=== PATIENT | female | born 2000 | race Caucasian/White ===

== ENCOUNTER 2023-09-08 11:37 | Emergency (ER) | payer OTHER, SELFPAY ==
--- NOTE | 2023-09-08 12:58 | ED.GENADULT ---
HPI - General Adult General Chief complaint: Abdominal Pain Stated complaint: kidney pain Time Seen by Provider: 09/08/23 15:30 Source: patient Mode of arrival: ambulatory Limitations: no limitations History of Present Illness HPI narrative: Patient comes to the emergency room complaining of 4 days of bilateral back pain, hematuria, dysuria. Patient denies fever or chills. Patient denies abdominal pain, patient complaining of nausea, no vomiting. Related Data Previous Rx's Medication Instructions Recorded levofloxacin 500 mg tablet 500 mg PO DAILY #10 tabs 09/08/23 ondansetron HCl 4 mg tablet 4 mg PO Q6H PRN nausea and 09/08/23 vomiting #14 tabs phenazopyridine 100 mg tablet 100 mg PO TID 6 doses #7 tabs 09/08/23 Allergies Allergy/AdvReac Type Severity Reaction Status Date / Time No Known Allergies Allergy Verified 09/08/23 13:00 [No Known Allergies*] Review of Systems Review of Systems: Constitutional : No Weight loss, No Fever, No Chills, No Night Sweats, No Fatigue, No Malaise ENT/Mouth : No Hearing loss, No Ear Pain, No Nasal Congestion, No Sinus Pain, No Hoarseness, No sore throat, No Rhinorrhea, No Swallowing Difficulty Eyes: No Eye Pain, No Swelling, No Redness, No Foreign Body, No Discharge, No Vision Changes Cardiovascular : No Chest Pain, No SOB, No Dyspnea on Exertion, No Orthopnea, No Edema, No Palpitations Respiratory : No Cough, No Sputum, No Wheezing, No Smoke Exposure, No Dyspnea Gastrointestinal : No Nausea, No Vomiting, No Diarrhea, No Constipation, No abdominal Pain, No Hematochezia, No Melena Genitourinary : Complaining of Dysuria, No Urinary Frequency, complaining of Hematuria, No Urinary Incontinence, No Urgency, complaining of bilateral Flank Pain, No Urinary Flow Changes, No Hesitancy Musculoskeletal : No joint pain, No Myalgias, No Joint Swelling Skin : No Skin Lesions, No rash Neuro : No Weakness, No Numbness, No Paresthesias, No Loss of Consciousness, No Dizziness, No Headache Psych : No Anxiety/Panic, No Depression, No SI/HI/AH/VH, No Social Issues, Heme/Lymph: No Bruising, No Bleeding,No Lymphadenopathy Endocrine : No Polyuria, No Polydipsia, No Temperature Intolerance [facility] Social History Social History Alcohol intake: never Smoked in Last 30 Days: No Use of substances other than those prescribed or required for medical reasons: No Advance Directives: No Physical Exam ED Vital Signs: Vital Signs - 24 hr 09/08/23 12:59 09/08/23 15:13 Temperature 98.8 F 978.5 F H Pulse Rate 69 60 Respiratory Rate 16 18 Blood Pressure 139/84 152/84 H Pulse Oximetry 97 99 Oxygen Delivery Method Room Air Room Air BMI result Body Mass Index 32.8 Const Other: Appearance: Alert. Oriented X3. No acute distress. Eyes: Pupils equal, round and reactive to light. ENT: Pharynx normal. Neck: Normal inspection. Neck supple. No lymph nodes noted. No crepitus CVS: Normal heart rate and rhythm. Pulses normal. Normal S1 and S2 Respiratory: No respiratory distress. Breath sounds normal. No Wheezing. No rales Abdomen: Soft and nontender. No rigidity. No distention. Very mild left-sided flank pain Skin: Skin warm and dry. Normal skin color. Normal skin turgor. Extremities: No lower extremity edema. No Lacerations. No Rash Neuro: Oriented X 3. No motor deficit. No sensory deficit. Moving all extremities. No slurred speech. CN 2 through 12 grossly intact Psych: calm, cooperative, normal affect Course Course Course Narrative: RME performed by Aminata Kim PA-C. Patient is a 23 year old assigned female at presenting to the emergency department with bilateral flank pain and blood in her urine. Labs ordered. Patient placed back in the waiting room pending room availability and results. Medications Administered Discontinued Medications Generic Name Dose Route Start Last Admin Trade Name Young PRN Reason Stop Dose Admin Levofloxacin 500 mg 09/08/23 15:38 09/08/23 16:06 Levofloxacin 500 Mg Tablet PO 09/08/23 15:39 500 mg ONCE ONE Administration Ondansetron HCl 4 mg 09/08/23 15:38 09/08/23 16:06 Ondansetron Odt 4 Mg Tab.Rapdis TRANSLINGU 09/08/23 15:39 4 mg ONCE ONE Administration Phenazopyridine HCl 100 mg 09/08/23 15:38 09/08/23 16:06 Phenazopyridine Hcl 100 Mg Tablet PO 09/08/23 15:39 100 mg ONCE ONE Administration Medical Decision Making Medical Decision Making [facility] Narrative: -my interpretation of labs, white blood cell count slightly elevated 11.8, chemistry normal, normal blood pressure, not tachycardic, no fever. Sepsis not suspected. Urinary tract infection positive, clinically patient has pyelonephritis. Patient tolerating well p.o., given levofloxacin, Zofran and phenazopyridine in the emergency room. -patient has had constant suprapubic discomfort with foul-smelling urine, cloudy urine. Very mild flank pain. Kidney stone is not suspected Differential Diagnosis Differential Diagnoses: The differential diagnosis associated with the presentation includes (UTI, pyelonephritis, renal colic) Lab Data [facility] Lab Attestation statement: I reviewed the patient's lab results. 09/08/23 13:08 09/08/23 13:08 Labs: Lab Results 09/08/23 Range/Units 13:08 WBC 11.8 H (4.8-10.8) X10*3/uL RBC 5.22 (4.20-5.50) X10*6/uL Hgb 14.9 (12.0-16.0) g/dl Hct 45.2 (37.0-47.0) % MCV 86.6 (80.0-98.0) fL MCH 28.5 (27.0-33.0) pg MCHC 33.0 (31.0-35.0) g/dl RDW 12.1 (11.0-16.0) % Plt Count 343 (160-400) X10*3/uL MPV 9.8 (9.4-12.3) fL Immature Gran % (Auto) 0.6 H (0.0-0.4) % Neut % (Auto) 78.2 H (45-73) % Lymph % (Auto) 13.0 L (20-40) % [place] % (Auto) 7.5 (2-11) % Eos % (Auto) 0.4 (0-4) % Baso % (Auto) 0.3 (0-2) % Lymph # (Auto) 1.5 (1.2-4.9) X10*3/uL [place] # (Auto) 0.9 (0.1-1.2) X10*3/uL Eos # (Auto) 0.1 (0.0-0.4) X10*3/uL Baso # (Auto) 0.0 (0.0-0.2) X10*3/uL Abs Immat Gran (auto) 0.07 H (0.00-0.03) X10*3/uL Absolute Neuts (auto) 9.2 H (2.0-8.3) x10*3/uL Absolute Nucleated RBC 0.000 (0.0-0.012) X10*3/uL Nucleated RBC % (auto) 0.0 (0.0-0.2) /100WBC Sodium 140 (135-145) mmol/L Potassium 4.3 (3.3-5.1) mmol/L Chloride 103 (96-108) mmol/L Carbon Dioxide 25 (22-29) mmol/L Anion Gap 16 (12-20) BUN 7 L (9-16) mg/dL Creatinine 0.69 (0.5-1.4) mg/dL Estim Creat Clear Calc 142.5 Estimated GFR > 60 Random Glucose 101 (60-115) mg/dL Calcium 10.2 (8.4-10.2) mg/dL Magnesium 1.9 (1.6-2.6) mg/dL Total Bilirubin 0.6 (0.0-1.0) mg/dL AST 14 (5-31) U/L ALT 14 (0-31) U/L Alkaline Phosphatase 69 (39-117) U/L Total Protein 7.9 (6.5-8.0) g/dL Albumin 4.4 (3.5-5.0) g/dL Beta HCG, Quant < 2 mIU/mL Urine Color Yellow Urine Appearance Turbid Urine pH 7.0 (5.0-9.0) Ur Specific [place] 1.015 (1.005-1.025) Urine Protein 100 (2+) H (Neg-Trace) mg/dL Urine Glucose (UA) Negative (Negative) mg/dL Urine Ketones 15 (Negative) mg/dL Urine Blood Moderate (2+) H (Negative) Urine Nitrite Negative (Negative) Ur Leukocyte Esterase Large (3+) H (Negative) Urine RBC >20 H (0-2) /HPF Urine WBC >50 H (0-5) /HPF Urine WBC Clumps Present Ur Squamous Epith Cells 0-2 (0-2) /HPF Urine Bacteria 1+ (None Seen) Hyaline Casts 0-2 (0-2) /LPF Discharge Plan Discharge Clinical Impression: Pyelonephritis Patient Disposition: Home, Self-Care Instructions: Kidney Infection (ED) Additional Instructions: Please follow-up with your primary care physician tomorrow. If you have any worsening or new symptoms, please return to the emergency room or call 911 Prescriptions: New levofloxacin 500 mg tablet 500 mg PO DAILY Qty: 10 0RF ondansetron HCl 4 mg tablet 4 mg PO Q6H PRN (Reason: nausea and vomiting) Qty: 14 0RF phenazopyridine 100 mg tablet 100 mg PO TID Qty: 7 0RF
[2023-09-08 12:59] VITALS: BP 139/84; PULSE 69; RESP 16; TEMP 37.1; O2SAT 97; BMI 32.8
[2023-09-08 15:13] VITALS: BP 152/84; PULSE 60; RESP 18; TEMP 525.8; TEMP 978.5; O2SAT 99
[2023-09-08 17:19] VITALS: BP 129/77; PULSE 52; RESP 16; O2SAT 97
== END 2023-09-08 17:19 | disposition home or self-care (01) ==
PROVIDERS: Emergency Provider Emergency Medicine
DX: N12 Tubulo-interstitial nephritis, not specified as acute or chronic (principal); R31.9 Hematuria, unspecified; R30.0 Dysuria; Z79.899 Other long term (current) drug therapy
CPT/HCPCS: 36415; 80053; 81001; 83735; 84702; 85025; 87086; 87088; 87186; 99283; 99284

== ENCOUNTER 2023-11-08 05:52 | Emergency (ER) | payer OTHER, SELFPAY ==
[2023-11-08 06:03] VITALS: BP 116/60; PULSE 64; RESP 16; TEMP 36.9; O2SAT 96; BMI 32.3
[2023-11-08 06:28] LABS: Basophils Percent Auto 0.3 % (0-2); Eosinophils Absolute Auto 0.1 X10*3/uL (0.0-0.4); Eosinophils Percent Auto 1.3 % (0-4); Hematocrit 41.6 % (37.0-47.0); Imm Gran Abs Auto 0.02 X10*3/uL (0.00-0.03); Imm Gran Pct Auto 0.3 % (0.0-0.4); Lymphocytes Percent Auto 38.7 % (20-40); MANUAL DIFF FLAG NO; Mean Corpuscular HGB Conc 33.7 g/dl (31.0-35.0); Mean Corpuscular Hemoglobin 28.9 pg (27.0-33.0); Mean Corpuscular Volume 85.8 fL (80.0-98.0); Mean Platelet Volume 9.6 fL (9.4-12.3); Monocytes Absolute Auto 0.7 X10*3/uL (0.1-1.2); Monocytes Percent Auto 8.5 % (2-11); Neutrophils Percent Auto 50.9 % (45-73); Platelet Count 313 X10*3/uL (160-400); Red Blood Count 4.85 X10*6/uL (4.20-5.50); Red Cell Distribution Width 12.6 % (11.0-16.0); White Blood Count 7.8 X10*3/uL (4.8-10.8)
[2023-11-08 06:40] LABS: Appearance Urine Hazy; Color Urine Yellow; Glucose Urine UA Negative (Negative); Leukocyte Esterase Urine Negative (Negative); Nitrite Urine Positive (Negative); PH 6.5 (5.0-9.0); UMIC TRIGGER UACC YES; UPreg QC Valid YES; Urine Blood Negative (Negative); Urine Ketones Trace mg/dL (Negative); Urine Pregnancy NEGATIVE (NEGATIVE); Urine Protein Negative (Neg-Trace)
[2023-11-08 06:42] LABS: Alanine Aminotransferase 14 U/L (0-31); Albumin Level 3.9 g/dL (3.5-5.0); Alkaline Phosphatase 63 U/L (39-117); Anion Gap 11 (12-20); Aspartate Amino Transferase 15 U/L (5-31); Bilirubin Direct 0.1 mg/dL (0.0-0.5); Bilirubin Total 0.3 mg/dL (0.0-1.0); Blood Urea Nitrogen 13 mg/dL (9-16); Calcium 9.3 mg/dL (8.4-10.2); Carbon Dioxide 30 mmol/L (22-29); Chloride 106 mmol/L (96-108); Creatinine Clr Calc Pharmacy 157.3; Estimated Glomerular Filt Rate > 60; Glucose Random 105 mg/dL (60-115); Lipase 21 U/L (8-78); Sodium 143 mmol/L (135-145); Total Protein 6.7 g/dL (6.5-8.0)
[2023-11-08 06:42] LABS: Bacteria Urine 1+ (None Seen); Hyaline Casts Urine 0-2 /LPF (0-2); RBC Urine 0-2 /HPF (0-2); UACC Culture Trigger YES
[2023-11-08 06:46] LABS: Amphetamine Screen Urine Not Detected (Not Detect); Barbiturates, Urine Not Detected (Not Detect); Benzodiazepines Screen Urine Not Detected (Not Detect); Cannabinoid Screen Urine POSITIVE (Not Detect); Cocaine Screen Urine Not Detected (Not Detect); Fentanyl, urine POSITIVE (Not Detect); Opiate Screen Urine Not Detected (Not Detect); Phencyclidine Screen Urine Not Detected (Not Detect)
[2023-11-08 07:24] LABS: Influenza A PCR NEGATIVE (Negative); Influenza B PCR NEGATIVE (Negative); Resp Syncy Virus RNA Qual PCR NEGATIVE (Negative); SARS COV2 PCR INHOUSE NEGATIVE (Negative)
--- NOTE | 2023-11-08 07:28 | ED.NAVMDI ---
HPI - Nausea/Vomiting/Diarrhea General Chief complaint: Nausea/Vomiting/Diarrhea Stated complaint: Vomiting Time Seen by Provider: 11/08/23 06:30 Source: patient Mode of arrival: ambulatory Limitations: no limitations History of Present Illness HPI Narrative: Patient is a 23-year-old female who presents emergency department for evaluation of mid lower abdominal pain with nausea vomiting poor p.o. tolerance for the past 2 days and urinary frequency. She reports tactile fever and chills. Of note, she states that 1 week ago she began taking a pill that a friend gave her reportedly for anxiety to help her sleep at night, she reports a longstanding history of insomnia. She is unaware of what this pill was, however she took it for 4 days in a row, and states that she began feeling this way after she stopped taking it. Related Data Previous Rx's Medication Instructions Recorded levofloxacin 500 mg tablet 500 mg PO DAILY #10 tabs 09/08/23 ondansetron HCl 4 mg tablet 4 mg PO Q6H PRN nausea and 09/08/23 vomiting #14 tabs phenazopyridine 100 mg tablet 100 mg PO TID 6 doses #7 tabs 09/08/23 cefuroxime axetil 250 mg tablet 250 mg PO BID 6 days #12 tabs 11/08/23 ondansetron 4 mg disintegrating 4 mg PO Q8H PRN nausea and 11/08/23 tablet vomiting #14 tabs Allergies Allergy/AdvReac Type Severity Reaction Status Date / Time No Known Allergies Allergy Verified 11/08/23 06:03 [No Known Allergies*] Review of Systems Review of Systems: Yes all other systems are reviewed and are negative PMFSH Past Medical History Attestation statement: The following information was validated with the patient. Source: old records reviewed Social History Social History Alcohol intake: never Smoked in Last 30 Days: No Use of substances other than those prescribed or required for medical reasons: Yes Substance Use Type: Marijuana Substance Use Frequency: Daily Advance Directives: No Advance Directives Information Provided: Yes Patient : No Physical Exam Vital Signs: Vital Signs: Last Vital Signs Temp 98.4 F 11/08/23 06:03 Pulse 64 11/08/23 06:03 Resp 16 11/08/23 06:03 BP 116/60 11/08/23 06:03 Pulse Ox 96 11/08/23 06:03 O2 Del Method Room Air 11/08/23 06:03 BMI result Body Mass Index 32.3 Appearance: Alert.?Oriented to person, place and time. No acute distress.?Normal affect. Eyes: Pupils equal, round and reactive to light.? ENT: Pharynx normal.?? Neck: Normal inspection.? Neck supple.?? CVS: Heart sounds normal. Normal heart rate and rhythm.? Pulses normal.?? Respiratory: No respiratory distress.? Lung sounds clear to auscultation bilaterally?? Abdomen: Soft and non-tender. Normoactive bowel sounds. No CVA tenderness. No rigidity. No guarding. No rebound tenderness. Negative Tabares sign. No distention. Skin: Skin warm and dry.? Normal skin color.? Extremities: No lower extremity edema.? Neuro: Moves all extremities spontaneously. Sensation intact bilaterally. Ambulates with normal steady gait. Medications Administered Discontinued Medications Generic Name Dose Route Start Last Admin Trade Name Freq PRN Reason Stop Dose Admin Sodium Chloride 1,000 mls @ 999 mls/hr 11/08/23 07:30 11/08/23 07:53 Ns IV 11/08/23 08:30 999 mls/hr .Q1H1M JAYASHREE Administration Ceftriaxone Sodium 1 gm/ 50 mls @ 100 mls/hr 11/08/23 07:24 11/08/23 08:55 Sodium Chloride IV 11/08/23 07:53 Infused ONCE ONE Infusion Ondansetron HCl 4 mg 11/08/23 07:24 11/08/23 07:52 Ondansetron Hcl 4 Mg/2 Ml Vial IVPUSH 11/08/23 07:25 4 mg ONCE ONE Administration Medical Decision Making Medical Decision Making [facility] Narrative: Patient is a 23-year-old female who presents emergency department for evaluation of abdominal pain with nausea vomiting and urinary frequency as per HPI. Her abdominal examination is benign, she has no CVA tenderness, at this time less likely to be pyelonephritis/hydronephrosis/ureteral calculi. Lower suspicion for colitis, obstruction, appendicitis, ovarian torsion, ovarian cyst. CBC is without leukocytosis or anemia. CMP is overall unremarkable. Lipase normal. test negative. Urinalysis consistent with UTI, for which she received Rocephin IV while in the emergency department. Her toxicology testing today is positive for fentanyl are and marijuana hand she denies concerns for her marijuana potentially be placed, we reviewed the concern of taking unknown substances not prescribed to her . She adamantly denies known opiate usage, she denies requiring detox. I did advise her that symptoms of nausea vomiting and chills could also be seen with withdrawal from opiates. She was offered Narcan to take home but again she declines this. She received 1 L IV fluids in addition to Zofran was able to tolerate oral intake. At this time she is stable for discharge home with course of oral antibiotics, reviewed worrisome signs and symptoms that would warrant re-evaluation in the emergency department, all questions answered. Stable for discharge. Differential Diagnosis Differential Diagnoses: The differential diagnosis associated with the presentation includes (As noted above) Admission/Observation Consideration of admission/observation: Escalation of care including admission/observation considered (See narrative above) Lab Data [facility] Lab Attestation statement: I reviewed the patient's lab results. (See narrative above) 11/08/23 06:24 11/08/23 06:24 Labs: Lab Results 11/08/23 11/08/23 11/08/23 Range/Units 06:24 06:31 06:43 WBC 7.8 (4.8-10.8) X10*3/uL RBC 4.85 (4.20-5.50) X10*6/uL Hgb 14.0 (12.0-16.0) g/dl Hct 41.6 (37.0-47.0) % MCV 85.8 (80.0-98.0) fL MCH 28.9 (27.0-33.0) pg MCHC 33.7 (31.0-35.0) g/dl RDW 12.6 (11.0-16.0) % Plt Count 313 (160-400) X10*3/uL MPV 9.6 (9.4-12.3) fL Immature Gran % (Auto) 0.3 (0.0-0.4) % Neut % (Auto) 50.9 (45-73) % Lymph % (Auto) 38.7 (20-40) % [place] % (Auto) 8.5 (2-11) % Eos % (Auto) 1.3 (0-4) % Baso % (Auto) 0.3 (0-2) % Lymph # (Auto) 3.0 (1.2-4.9) X10*3/uL [place] # (Auto) 0.7 (0.1-1.2) X10*3/uL Eos # (Auto) 0.1 (0.0-0.4) X10*3/uL Baso # (Auto) 0.0 (0.0-0.2) X10*3/uL Abs Immat Gran (auto) 0.02 (0.00-0.03) X10*3/uL Absolute Neuts (auto) 4.0 (2.0-8.3) x10*3/uL Absolute Nucleated RBC 0.000 (0.0-0.012) X10*3/uL Nucleated RBC % (auto) 0.0 (0.0-0.2) /100WBC Sodium 143 (135-145) mmol/L Potassium 4.0 (3.3-5.1) mmol/L Chloride 106 (96-108) mmol/L Carbon Dioxide 30 H (22-29) mmol/L Anion Gap 11 L (12-20) BUN 13 (9-16) mg/dL Creatinine 0.62 (0.5-1.4) mg/dL Estim Creat Clear Calc 157.3 Estimated GFR > 60 Random Glucose 105 (60-115) mg/dL Calcium 9.3 D (8.4-10.2) mg/dL Total Bilirubin 0.3 (0.0-1.0) mg/dL Direct Bilirubin 0.1 (0.0-0.5) mg/dL AST 15 (5-31) U/L ALT 14 (0-31) U/L Alkaline Phosphatase 63 (39-117) U/L Total Protein 6.7 (6.5-8.0) g/dL Albumin 3.9 (3.5-5.0) g/dL Lipase 21 (8-78) U/L Urine Color Yellow Urine Appearance Hazy Urine pH 6.5 (5.0-9.0) Ur Specific [place] 1.020 (1.005-1.025) Urine Protein Negative (Neg-Trace) mg/dL Urine Glucose (UA) Negative (Negative) mg/dL Urine Ketones Trace (Negative) mg/dL Urine Blood Negative (Negative) Urine Nitrite Positive H (Negative) Ur Leukocyte Esterase Negative (Negative) Urine RBC 0-2 (0-2) /HPF Urine WBC 6-10 H (0-5) /HPF Ur Squamous Epith Cells 6-10 (0-2) /HPF Urine Bacteria 1+ (None Seen) Hyaline Casts 0-2 (0-2) /LPF Urine Test NEGATIVE (NEGATIVE) Urine Opiates Screen Not Detected (Not Detect) Urine Fentanyl Screen POSITIVE H (Not Detect) Ur Barbiturates Screen Not Detected (Not Detect) Ur Phencyclidine Scrn Not Detected (Not Detect) Ur Amphetamines Screen Not Detected (Not Detect) U Benzodiazepines Scrn Not Detected (Not Detect) Urine Cocaine Screen Not Detected (Not Detect) U Marijuana (THC) Screen POSITIVE H (Not Detect) Influenza Type A (PCR) NEGATIVE (Negative) Influenza Type B (PCR) NEGATIVE (Negative) RSV RNA Qual (PCR) NEGATIVE (Negative) SARS-CoV-2 RNA (RT-PCR) NEGATIVE (Negative) Prescription Management I considered prescription management with: Antibiotic Discharge Plan Discharge Clinical Impression: Urinary tract infection Patient Disposition: Home, Self-Care Instructions: Urinary Tract Infection in Women (ED) Prescriptions: New ondansetron 4 mg tablet,disintegrating 4 mg PO Q8H PRN (Reason: nausea and vomiting) Qty: 14 0RF cefuroxime axetil 250 mg tablet 250 mg PO BID 6 Days Qty: 12 0RF No Action levofloxacin 500 mg tablet 500 mg PO DAILY Qty: 10 0RF ondansetron HCl 4 mg tablet 4 mg PO Q6H PRN (Reason: nausea and vomiting) Qty: 14 0RF phenazopyridine 100 mg tablet 100 mg PO TID Qty: 7 0RF Referrals: Physician,Unknown J [Primary Care Provider] -
[2023-11-08] MEDS: ondansetron HCL 4 MG/2 ML VIAL IVPUSH (07:52)
[2023-11-08] MEDS: cefTRIAXone sodium 1 GM in 0.9 % Sodium Chloride 50 ML IV (07:52)
[2023-11-08] MEDS: 0.9 % Sodium Chloride 1,000 ML 999 ML IV (07:53)
[2023-11-08 09:22] VITALS: BP 119/66; PULSE 63; RESP 19; TEMP 37.1; O2SAT 98
--- NOTE | 2023-11-08 09:32 | PC.NURSE ---
this RN resumed care of pt at this time. PO trial initiated - pt able to tolerate fluids w/o difficulty/feeling nauseous. will notify provider. IV fluids completed infused at this time. pt has no complaints. resting in no apparent distress at this time. respirations even and unlabored.
== END 2023-11-08 09:47 | disposition home or self-care (01) ==
PROVIDERS: Nurse Practitioner Family; Emergency Provider Emergency Medicine Emergency Medical Services
DX: N39.0 Urinary tract infection, site not specified (principal); R11.2 Nausea with vomiting, unspecified; R35.0 Frequency of micturition; R10.9 Unspecified abdominal pain; F12.90 Cannabis use, unspecified, uncomplicated; Z20.822 Contact with and (suspected) exposure to COVID-19; Z20.828 Contact with and (suspected) exposure to other viral communicable diseases
CPT/HCPCS: 0241U; 36415; 80048; 80076; 80307; 81001; 81025; 83690; 85025; 87086; 87088; 87186; 96365; 96375; 99284; J0696; J2405

== ENCOUNTER 2023-11-27 05:21 | Emergency (ER) | payer OTHER, SELFPAY ==
--- NOTE | ~2023-11-27 | US_ITS ---
EXAMINATION: US RETROPERITONEAL LIMITED (RENAL ONLY) CLINICAL INFORMATION: Flank pain. COMPARISON: None available. TECHNIQUE: Real-time ultrasound of the kidneys was performed. Technically limited study due to patient body habitus. FINDINGS: RIGHT KIDNEY: 10.9 x 6.5 x 6.5 cm (SAG x AP x TRV). The kidney is normal in size, contour, and echogenicity. Renal cortical thickness is normal. No calculi or focal parenchymal lesions. No hydronephrosis. The left kidney is absent. US/US renal RT IMPRESSION: 1. Normal appearance of the right kidney. 2. The left kidney is absent.
[2023-11-27 05:25] VITALS: BP 135/63; PULSE 75; RESP 20; TEMP 36.5; O2SAT 98; BMI 32.8
[2023-11-27 06:19] LABS: MANUAL DIFF FLAG NO
[2023-11-27 06:20] LABS: Basophils Percent Auto 0.2 % (0-2); Eosinophils Absolute Auto 0.1 X10*3/uL (0.0-0.4); Eosinophils Percent Auto 0.6 % (0-4); Hematocrit 38.4 % (37.0-47.0); Hemoglobin 13.1 g/dl (12.0-16.0); Imm Gran Abs Auto 0.04 X10*3/uL (0.00-0.03); Imm Gran Pct Auto 0.3 % (0.0-0.4); Lymphocytes Absolute Auto 1.8 X10*3/uL (1.2-4.9); Lymphocytes Percent Auto 14.5 % (20-40); Mean Corpuscular HGB Conc 34.1 g/dl (31.0-35.0); Mean Corpuscular Hemoglobin 29.2 pg (27.0-33.0); Mean Corpuscular Volume 85.5 fL (80.0-98.0); Mean Platelet Volume 9.3 fL (9.4-12.3); Monocytes Absolute Auto 0.8 X10*3/uL (0.1-1.2); Monocytes Percent Auto 6.3 % (2-11); Neutrophils Absolute Auto 9.6 x10*3/uL (2.0-8.3); Neutrophils Percent Auto 78.1 % (45-73); Platelet Count 271 X10*3/uL (160-400); Red Blood Count 4.49 X10*6/uL (4.20-5.50); Red Cell Distribution Width 12.7 % (11.0-16.0); White Blood Count 12.2 X10*3/uL (4.8-10.8)
[2023-11-27 06:34] LABS: Alanine Aminotransferase 13 U/L (0-31); Albumin Level 3.9 g/dL (3.5-5.0); Alkaline Phosphatase 61 U/L (39-117); Anion Gap 12 (12-20); Aspartate Amino Transferase 15 U/L (5-31); Bilirubin Total 0.3 mg/dL (0.0-1.0); Blood Urea Nitrogen 10 mg/dL (9-16); Calcium 9.2 mg/dL (8.4-10.2); Carbon Dioxide 26 mmol/L (22-29); Chloride 106 mmol/L (96-108); Creatinine Clr Calc Pharmacy 158.5; Estimated Glomerular Filt Rate > 60; Glucose Random 118 mg/dL (60-115); Lipase 14 U/L (8-78); Potassium 4.5 mmol/L (3.3-5.1); Sodium 139 mmol/L (135-145); Total Protein 6.8 g/dL (6.5-8.0)
[2023-11-27 06:35] VITALS: BP 128/80; PULSE 69; RESP 14; O2SAT 97
[2023-11-27 06:48] LABS: Appearance Urine Clear; Color Urine Yellow; Glucose Urine UA Negative (Negative); Leukocyte Esterase Urine Negative (Negative); Nitrite Urine Negative (Negative); PH 6.5 (5.0-9.0); Specific Gravity - Urine 1.025 (1.005-1.025); Urine Blood Negative (Negative); Urine Ketones Negative (Negative); Urine Protein Negative (Neg-Trace)
[2023-11-27 06:50] LABS: UPreg QC Valid YES; Urine Pregnancy NEGATIVE (NEGATIVE)
[2023-11-27 06:53] LABS: Bacteria Urine Trace (None Seen); Hyaline Casts Urine 0-2 /LPF (0-2); RBC Urine 0-2 /HPF (0-2); WBC Urine 0-5 /HPF (0-5)
--- NOTE | 2023-11-27 07:07 | ED.ABDPAIN ---
HPI - Abdominal Pain General Chief Complaint: Abdominal Pain Stated Complaint: n/v Time Seen by Provider: 11/27/23 07:03 Source: patient Mode of arrival: ambulatory Limitations: no limitations History of Present Illness HPI narrative: 23 yo female with hx of ETOH vomiting and abdominal pain every time she drinks ETOH - also recent UTI took all of abx except one day. At this time she notes since Eugenio Milvia heavy ETOH use she has had n/v and unable to keep anything down which is normal for her and she normally has to go to the hospital after drinking. She also notes R back pain worse with movements wanted to make sure she didn't have a UTI - no hx of stones. No fevers MD elicited complaint: abdominal pain and flank pain Pertinent past history: past UTI Onset (ago): day(s) (3) Pain Consistency: intermittent Location: R flank Severity: mild Quality: aching Radiation: none Migration to: no migration Exacerbating factors: eating and movement Relieving factors: nothing Context: history of similar episodes Associated symptoms: nausea and vomiting Related Data Previous Rx's Medication Instructions Recorded levofloxacin 500 mg tablet 500 mg PO DAILY #10 tabs 09/08/23 ondansetron HCl 4 mg tablet 4 mg PO Q6H PRN nausea and 09/08/23 vomiting #14 tabs phenazopyridine 100 mg tablet 100 mg PO TID 6 doses #7 tabs 09/08/23 cefuroxime axetil 250 mg tablet 250 mg PO BID 6 days #12 tabs 11/08/23 ondansetron 4 mg disintegrating 4 mg PO Q8H PRN nausea and 11/08/23 tablet vomiting #14 tabs famotidine 20 mg tablet (Pepcid) 20 mg PO DAILY PRN abdominal 11/27/23 discomfort #30 tabs ondansetron 4 mg disintegrating 4 mg PO Q8H PRN nausea and 11/27/23 tablet vomiting #20 tabs Allergies Allergy/AdvReac Type Severity Reaction Status Date / Time No Known Allergies Allergy Verified 11/08/23 06:03 [No Known Allergies*] Review of Systems Review of Systems Constitutional : No Weight loss, No Fever, No Chills ENT/Mouth : No sore throat, No Rhinorrhea Eyes: No Swelling, No Redness Cardiovascular : No Chest Pain, No SOB, NoEdema Respiratory : No Cough, No Sputum, No Wheezing Gastrointestinal : Positive Nausea, Positive Vomiting, no Diarrhea, no abdominal Pain, No Hematochezia, No Melena Genitourinary : No Dysuria, No Urinary Frequency, No Hematuria, No Urgency Musculoskeletal : No joint pain, No Myalgias, No Joint Swelling, pos back pain Skin : No Skin Lesions, No rash Neuro : No Weakness, No Numbness, No Dizziness, No Headache Psych : No Anxiety/Panic, No Depression All other systems reviewed and are negative. [facility] Past Medical History Attestation statement: The following information was validated with the patient. Medical History Acute UTI Social History Social History Alcohol intake: never Smoked in Last 30 Days: No Use of substances other than those prescribed or required for medical reasons: No Substance Use Type: Marijuana Advance Directives: No Advance Directives Information Provided: No Patient : No Physical Exam ED Vital Signs: Vital Signs - 24 hr 11/27/23 05:25 11/27/23 06:35 11/27/23 07:29 Temperature 97.7 F 98.9 F Pulse Rate 75 69 68 Respiratory Rate 20 14 16 Blood Pressure 135/63 128/80 121/78 Pulse Oximetry 98 97 96 Oxygen Delivery Method Room Air Room Air Room Air BMI result Body Mass Index 32.8 Appearance: Alert. Oriented X3. No acute distress. Eyes: Pupils equal, round and reactive to light. ENT: Pharynx mildly dry MM Neck: Normal inspection. Neck supple. CVS: Normal heart rate and rhythm. Pulses normal. Respiratory: No respiratory distress. Breath sounds normal. Abdomen: Soft and nontender. mild R CVA ttp Skin: Skin warm and dry. Normal skin color. Normal skin turgor. Extremities: No lower extremity edema. No calf ttp Neuro: Oriented X 3. No motor deficit. No sensory deficit. Medical Decision Making Medical Decision Making MDM Narrative: 23 yo female with PMH of vomiting and abdominal pain post ETOH in the past here with similar complaint after Eugenio Steel will obtain basic labs, hydrate, supportive medications - her abdomen is soft doubt pancreatitis. She also has R flank pain - just had UTI missed one day no fevers - US of R kidney for stones and repeat UA. Overall not toxic, hx of similar hospital visits likely ETOH gastritis. Differential Diagnosis Differential Diagnoses: The differential diagnosis associated with the presentation includes back strain, kidney stones, ETOH gastritis, GERD Admission/Observation Consideration of admission/observation: Escalation of care including admission/observation considered labs and US reassuring able to tolerate PO stable for DC Lab Data MDM Lab Attestation statement: I reviewed the patient's lab results. 11/27/23 06:09 11/27/23 06:09 Labs: Lab Results 11/27/23 11/27/23 Range/Units 06:09 06:40 WBC 12.2 H (4.8-10.8) X10*3/uL RBC 4.49 (4.20-5.50) X10*6/uL Hgb 13.1 (12.0-16.0) g/dl Hct 38.4 (37.0-47.0) % MCV 85.5 (80.0-98.0) fL MCH 29.2 (27.0-33.0) pg MCHC 34.1 (31.0-35.0) g/dl RDW 12.7 (11.0-16.0) % Plt Count 271 (160-400) X10*3/uL MPV 9.3 L (9.4-12.3) fL Immature Gran % (Auto) 0.3 (0.0-0.4) % Neut % (Auto) 78.1 H (45-73) % Lymph % (Auto) 14.5 L (20-40) % [place] % (Auto) 6.3 (2-11) % Eos % (Auto) 0.6 (0-4) % Baso % (Auto) 0.2 (0-2) % Lymph # (Auto) 1.8 (1.2-4.9) X10*3/uL [place] # (Auto) 0.8 (0.1-1.2) X10*3/uL Eos # (Auto) 0.1 (0.0-0.4) X10*3/uL Baso # (Auto) 0.0 (0.0-0.2) X10*3/uL Abs Immat Gran (auto) 0.04 H (0.00-0.03) X10*3/uL Absolute Neuts (auto) 9.6 H (2.0-8.3) x10*3/uL Absolute Nucleated RBC 0.000 (0.0-0.012) X10*3/uL Nucleated RBC % (auto) 0.0 (0.0-0.2) /100WBC Sodium 139 (135-145) mmol/L Potassium 4.5 (3.3-5.1) mmol/L Chloride 106 (96-108) mmol/L Carbon Dioxide 26 (22-29) mmol/L Anion Gap 12 (12-20) BUN 10 (9-16) mg/dL Creatinine 0.62 (0.5-1.4) mg/dL Estim Creat Clear Calc 158.5 Estimated GFR > 60 Random Glucose 118 H (60-115) mg/dL Calcium 9.2 (8.4-10.2) mg/dL Total Bilirubin 0.3 (0.0-1.0) mg/dL AST 15 (5-31) U/L ALT 13 (0-31) U/L Alkaline Phosphatase 61 (39-117) U/L Total Protein 6.8 (6.5-8.0) g/dL Albumin 3.9 (3.5-5.0) g/dL Lipase 14 (8-78) U/L Urine Color Yellow Urine Appearance Clear Urine pH 6.5 (5.0-9.0) Ur Specific [place] 1.025 (1.005-1.025) Urine Protein Negative (Neg-Trace) mg/dL Urine Glucose (UA) Negative (Negative) mg/dL Urine Ketones Negative (Negative) mg/dL Urine Blood Negative (Negative) Urine Nitrite Negative (Negative) Ur Leukocyte Esterase Negative (Negative) Urine RBC 0-2 (0-2) /HPF Urine WBC 0-5 (0-5) /HPF Ur Squamous Epith Cells 6-10 (0-2) /HPF Urine Bacteria Trace (None Seen) Hyaline Casts 0-2 (0-2) /LPF Urine Test NEGATIVE (NEGATIVE) Independent Interpretation I performed an independent interpretation of an: Ultrasound (no stone) Radiology Impression Discussion of test interpretation with radiology: I have reviewed the radiologist's reading. External Record Review External record reviewed: Inpatient record Prescription Management I considered prescription management with: Other Medications Administered Discontinued Medications Generic Name Dose Route Start Last Admin Trade Name Freq PRN Reason Stop Dose Admin Famotidine 20 mg 11/27/23 07:18 11/27/23 07:35 Famotidine/Pf 20 Mg/2 Ml Vial IVPUSH 11/27/23 07:19 20 mg ONCE ONE Administration Sodium Chloride 1,000 mls @ 999 mls/hr 11/27/23 07:30 11/27/23 07:35 Ns IV 11/27/23 08:30 999 mls/hr .Q1H1M JAYASHREE Administration Ondansetron HCl 4 mg 11/27/23 07:18 11/27/23 07:35 Ondansetron Hcl 4 Mg/2 Ml Vial IVPUSH 11/27/23 07:19 4 mg ONCE ONE Administration Discharge Plan Discharge Clinical Impression: Acute flank pain Acute alcoholic gastritis Qualifiers: Gastritis bleeding: without bleeding Qualified Code(s): K29.20 - Alcoholic gastritis without bleeding Patient Disposition: Home, Self-Care Instructions: Gastritis (ED), Flank Pain (ED) Additional Instructions: return for worsening pain, fevers, vomiting, inability to eat or drink. ultrasound showed normal R kidney but no left kidney seen - follow up with primary care doctor bland diet then advance slowly for 48 hours no ALCOHOL Prescriptions: New famotidine [Pepcid] 20 mg tablet 20 mg PO DAILY PRN (Reason: abdominal discomfort) Qty: 30 0RF ondansetron 4 mg tablet,disintegrating 4 mg PO Q8H PRN (Reason: nausea and vomiting) Qty: 20 0RF No Action levofloxacin 500 mg tablet 500 mg PO DAILY Qty: 10 0RF ondansetron HCl 4 mg tablet 4 mg PO Q6H PRN (Reason: nausea and vomiting) Qty: 14 0RF phenazopyridine 100 mg tablet 100 mg PO TID Qty: 7 0RF ondansetron 4 mg tablet,disintegrating 4 mg PO Q8H PRN (Reason: nausea and vomiting) Qty: 14 0RF cefuroxime axetil 250 mg tablet 250 mg PO BID 6 Days Qty: 12 0RF
[2023-11-27 07:29] VITALS: BP 121/78; PULSE 68; RESP 16; TEMP 37.2; O2SAT 96
[2023-11-27] MEDS: 0.9 % Sodium Chloride 1,000 ML 999 ML IV (07:35)
[2023-11-27] MEDS: ondansetron HCL 4 MG/2 ML VIAL IVPUSH (07:35)
[2023-11-27] MEDS: Famotidine/PF 20 MG/2 ML VIAL IVPUSH (07:35)
== END 2023-11-27 10:19 | disposition home or self-care (01) ==
PROVIDERS: Emergency Provider Emergency Medicine
DX: K29.20 Alcoholic gastritis without bleeding (principal); R10.2 Pelvic and perineal pain; F50.2 Bulimia nervosa; Z79.899 Other long term (current) drug therapy
CPT/HCPCS: 36415; 76775; 80053; 81001; 81025; 83690; 85025; 96361; 96374; 96375; 99284; J2405

== ENCOUNTER 2024-02-21 01:59 | Emergency (ER) | payer OTHER, SELFPAY ==
[2024-02-21 02:03] VITALS: BP 123/72; PULSE 123; RESP 18; TEMP 36.7; O2SAT 98; BMI 31.9
[2024-02-21 03:01] LABS: Hematocrit 44.6 % (37.0-47.0); Hemoglobin 14.9 g/dl (12.0-16.0); Mean Corpuscular HGB Conc 33.4 g/dl (31.0-35.0); Mean Corpuscular Hemoglobin 28.4 pg (27.0-33.0); Mean Corpuscular Volume 85.1 fL (80.0-98.0); Mean Platelet Volume 9.3 fL (9.4-12.3); Platelet Count 347 X10*3/uL (160-400); Red Blood Count 5.24 X10*6/uL (4.20-5.50); Red Cell Distribution Width 12.5 % (11.0-16.0); White Blood Count 13.2 X10*3/uL (4.8-10.8)
[2024-02-21 03:09] LABS: Appearance Urine Clear; Color Urine Yellow; Glucose Urine UA Negative (Negative); Leukocyte Esterase Urine Trace (Negative); Nitrite Urine Negative (Negative); Specific Gravity - Urine >= 1.030 (1.005-1.025); UMIC TRIGGER UACC YES; Urine Blood Negative (Negative); Urine Ketones Trace mg/dL (Negative); Urine Protein Trace mg/dL (Neg-Trace)
[2024-02-21 03:11] LABS: Bacteria Urine 3+ (None Seen); Hyaline Casts Urine 0-2 /LPF (0-2); RBC Urine 0-2 /HPF (0-2); WBC Urine 0-5 /HPF (0-5)
[2024-02-21 03:15] LABS: Alanine Aminotransferase 11 U/L (0-31); Alkaline Phosphatase 83 U/L (39-117); Anion Gap 10 (12-20); Aspartate Amino Transferase 12 U/L (5-31); Bilirubin Total 0.2 mg/dL (0.0-1.0); Blood Urea Nitrogen 14 mg/dL (9-16); Calcium 9.5 mg/dL (8.4-10.2); Carbon Dioxide 31 mmol/L (22-29); Chloride 105 mmol/L (96-108); Estimated Glomerular Filt Rate > 60; Glucose Random 95 mg/dL (60-115); Lipase 21 U/L (8-78); Potassium 4.4 mmol/L (3.3-5.1); Sodium 142 mmol/L (135-145); Total Protein 6.9 g/dL (6.5-8.0)
[2024-02-21 05:45] VITALS: BP 104/62; PULSE 57; RESP 12; TEMP 36.4; O2SAT 97
--- NOTE | 2024-02-21 06:40 | ED_ITS ---
HPI - General Adult General Chief complaint: Nausea/Vomiting/Diarrhea Stated complaint: Vomiting Time Seen by Provider: 02/21/24 06:36 Source: patient Mode of arrival: ambulatory Limitations: no limitations History of Present Illness HPI narrative: Patient is a 24 year old assigned female at with no reported medical history presenting to the emergency department today with nausea and vomiting. Patient states that over the last 2 days she has had consistent nausea and vomiting. Patient denies any dizziness, lightheadedness, abdominal pain, fever, chills, blurry vision, double vision, loss of vision, chest pain, difficulty breathing, shortness of breath, back pain, night sweats, pain with urination, increased urinary frequency, increased urinary urgency, blood in her urine or stool, syncope or a near syncopal episode, recent trauma or falls, bowel incontinence, bladder incontinence, bowel retention, bladder retention, or any other complaints at this time. Onset (ago): day(s) (2) Severity: mild Severity scale (1-10): 3 Relieving factors: none Exacerbating factors: none Associated symptoms: nausea/vomiting Treatments prior to arrival: none Related Data Previous Rx's Medication Instructions Recorded levofloxacin 500 mg tablet 500 mg PO DAILY #10 tabs 09/08/23 ondansetron HCl 4 mg tablet 4 mg PO Q6H PRN nausea and 09/08/23 vomiting #14 tabs phenazopyridine 100 mg tablet 100 mg PO TID 6 doses #7 tabs 09/08/23 cefuroxime axetil 250 mg tablet 250 mg PO BID 6 days #12 tabs 11/08/23 ondansetron 4 mg disintegrating 4 mg PO Q8H PRN nausea and 11/08/23 tablet vomiting #14 tabs famotidine 20 mg tablet (Pepcid) 20 mg PO DAILY PRN abdominal 11/27/23 discomfort #30 tabs ondansetron 4 mg disintegrating 4 mg PO Q8H PRN nausea and 11/27/23 tablet vomiting #20 tabs cefuroxime axetil 250 mg tablet 250 mg PO BID 7 days #14 tabs 02/21/24 ondansetron 4 mg disintegrating 4 mg PO Q8H 3 days #9 tabs 02/21/24 tablet Allergies Allergy/AdvReac Type Severity Reaction Status Date / Time No Known Allergies Allergy Verified 03/23/24 02:03 [No Known Allergies*] Review of Systems 2 Constitutional: Constitutional: Reports no additional constitutional complaints, Denies chills, Denies fever(s) and Denies night sweats Eyes: Eyes: Reports no additional eye complaints, Denies blurry vision, Denies change in vision, Denies diplopia, Denies eye discharge, Denies loss of vision and Denies eye pain ENT: Denies dizziness Cardiovascular: Cardiovascular: Reports no additional cardiovascular complaints, Denies chest pain, Denies lightheadedness, Denies Loss of Consciousness and Denies dyspnea Respiratory: Respiratory: Reports no additional respiratory complaints and Denies dyspnea Gastrointestinal: Gastrointestinal: Reports no additional gastrointestinal complaints, Denies abdominal pain, Denies melena, Denies hematochezia, Denies change in bowel habits, Denies change in stool character, Reports nausea and Reports vomiting Genitourinary: Genitourinary: Denies hematuria, Denies urinary frequency, Denies dysuria, Denies urinary incontinence, Denies urinary hesitancy and Denies urinary urgency Musculoskeletal: Musculoskeletal: Reports no additional musculoskeletal complaints, Denies numbness and Denies tingling Neurologic: Denies dizziness, Denies loss of vision, Denies numbness and Denies tingling Psychiatric: Psychiatric: Reports no additional psychiatric complaints Endocrine: Endocrine: Reports no additional endocrine complaints Hematologic/Lymphatic: Hematologic/Lymphatic: Reports no additional hematologic/lymphatic complaints Allergic/Immunologic: Allergic/Immunologic: Reports no additional allergic/immunologic complaints [facility] Past Medical History Attestation statement: The following information was validated with the patient. Source: old records reviewed and nursing notes reviewed Medical History Acute UTI Social History Social History Alcohol intake: never Substance Use Type: Marijuana Advance Directives: No Advance Directives Information Provided: No Physical Exam ED Vital Signs: Vital Signs - 24 hr 02/21/24 02:03 02/21/24 05:45 02/21/24 07:46 Temperature 98.1 F 97.6 F 97.8 F Pulse Rate 123 H 57 61 Respiratory Rate 18 12 18 Blood Pressure 123/72 104/62 122/66 Pulse Oximetry 98 97 98 Oxygen Delivery Method Room Air Room Air Room Air BMI result Body Mass Index 31.9 Const General: cooperative, no acute distress, alert and awake Nutritional Appearance: well nourished Orientation/consciousness: patient oriented x3 Limitations: no limitations HENMT Head: Yes normal to inspection and Yes atraumatic Ears: hearing grossly normal bilaterally and external ears normal General nose exam: Normal external nose present, no nasal discharge noted and no epistaxis Face and sinus: Yes normal facial exam, No abrasion and No laceration Mouth: Normal oral and palatal mucosa present, no drooling and no muffled voice Eyes General: appearance normal, both eyes and all related structures Periorbital: periorbital findings normal Eyelids: Yes eyelids normal Conjunctivae: conjunctivae normal Pupils: Equal, round and reactive pupils present EOM: EOMs intact bilaterally Neck Neck: Yes normal visual inspection, Yes full ROM and Yes no lymphadenopathy Chest Chest palpation & inspection: normal inspection of the chest Resp Effort & Inspection: normal respiratory effort and able to speak in complete sentences GI Inspection: Yes normal to inspection Palpation (GI): Soft to palpation, not firm, nontender, no guarding and not rigid Neuro General: patient oriented x3 and moves all extremities Cranial nerves: Yes Equal, round and reactive pupils present Cognition (Neuro): normal cognition Motor exam (neuro): 5/5 motor strength present throughout Sensory Exam: Normal double simultaneous stimulation for sensation Coordination: [id number] test normal Extrem General: Yes normal to inspection, Yes full ROM and Yes capillary refill normal Psych Appearance: grossly normal Mental Status: mental status grossly normal Affect: normal affect Attitude: cooperative Thought process: Normal thought process present Thought content: Normal thought content present Insight: Good insight present (Psych) Medications Administered Discontinued Medications Generic Name Dose Route Start Last Admin Trade Name Johnq PRN Reason Stop Dose Admin Sodium Chloride 1,000 mls @ 999 mls/hr 02/21/24 06:45 02/21/24 08:06 Ns IV 02/21/24 07:45 Infused .Q1H1M JAYASHREE Infusion Ondansetron HCl 4 mg 02/21/24 06:40 02/21/24 06:50 Ondansetron Hcl 4 Mg/2 Ml Vial IVPUSH 02/21/24 06:41 4 mg ONCE ONE Administration Medical Decision Making Medical Decision Making MDM Narrative: Patient is a 24 year old assigned female at with no reported medical history presenting to the emergency department today with nausea and vomiting. Patient's physical exam was unremarkable. Patient's blood work was unremarkable. Patient's urine showed a possible UTI, given the patient's symptoms, will treat. I explained my physical exam findings as well as all test results to the patient. I answered all questions asked by the patient. I stressed the importance of the patient taking her medication as prescribed. I stressed the importance of the patient following up with her primary care provider. I stressed the importance of the patient returning to the emergency department immediately if her symptoms were to worsen or if she were to develop any dizziness, shortness of breath, difficulty breathing, chest pain, blurry vision, loss of vision, nausea, vomiting, abdominal pain, fever, chills, back pain, or any other complaints. Patient verbalized agreement and understanding with this treatment plan and discharge. Differential Diagnosis Differential Diagnoses: The differential diagnosis associated with the presentation includes Nausea Vomiting UTI Gastroenteritis Admission/Observation Consideration of admission/observation: Escalation of care including admission/observation considered Patient would have been admitted to the hospital had her work up had any findings where hospital admission was appropriate and her clinical presentation warranted hospital admission. Lab Data [facility] Lab Attestation statement: I reviewed the patient's lab results. My interpretation of these results are in the MDM Rationale portion of this note. 02/21/24 02:55 02/21/24 02:55 Labs: Lab Results 02/21/24 02/21/24 Range/Units 02:55 02:57 WBC 13.2 H (4.8-10.8) X10*3/uL RBC 5.24 (4.20-5.50) X10*6/uL Hgb 14.9 (12.0-16.0) g/dl Hct 44.6 (37.0-47.0) % MCV 85.1 (80.0-98.0) fL MCH 28.4 (27.0-33.0) pg MCHC 33.4 (31.0-35.0) g/dl RDW 12.5 (11.0-16.0) % Plt Count 347 D (160-400) X10*3/uL MPV 9.3 L (9.4-12.3) fL Absolute Nucleated RBC 0.000 (0.0-0.012) X10*3/uL Nucleated RBC % (auto) 0.0 (0.0-0.2) /100WBC Sodium 142 (135-145) mmol/L Potassium 4.4 (3.3-5.1) mmol/L Chloride 105 (96-108) mmol/L Carbon Dioxide 31 H (22-29) mmol/L Anion Gap 10 L (12-20) BUN 14 (9-16) mg/dL Creatinine 0.62 (0.5-1.4) mg/dL Estim Creat Clear Calc 155.0 Estimated GFR > 60 Random Glucose 95 (60-115) mg/dL Calcium 9.5 (8.4-10.2) mg/dL Total Bilirubin 0.2 (0.0-1.0) mg/dL AST 12 (5-31) U/L ALT 11 (0-31) U/L Alkaline Phosphatase 83 (39-117) U/L Total Protein 6.9 (6.5-8.0) g/dL Albumin 4.0 (3.5-5.0) g/dL Lipase 21 (8-78) U/L Urine Color Yellow Urine Appearance Clear Urine pH 7.0 (5.0-9.0) Ur Specific [place] >= 1.030 H (1.005-1.025) Urine Protein Trace (Neg-Trace) mg/dL Urine Glucose (UA) Negative (Negative) mg/dL Urine Ketones Trace (Negative) mg/dL Urine Blood Negative (Negative) Urine Nitrite Negative (Negative) Ur Leukocyte Esterase Trace H (Negative) Urine RBC 0-2 (0-2) /HPF Urine WBC 0-5 (0-5) /HPF Ur Squamous Epith Cells 11-20 (0-2) /HPF Urine Bacteria 3+ (None Seen) Hyaline Casts 0-2 (0-2) /LPF Prescription Management I considered prescription management with: Antibiotic (patient prescribed an antibiotic for possible UTI) and Other (patient prescribed an anti-emetic) Discharge Plan Discharge Clinical Impression: Nausea & vomiting, UTI (urinary tract infection) Patient Disposition: Home, Self-Care Instructions: Urinary Tract Infection in Women (DC), Acute Nausea and Vomiting (ED) Additional Instructions: Follow up with your primary care provider. Return to the emergency department immediately if your symptoms worsen or if you develop any dizziness, shortness of breath, difficulty breathing, chest pain, blurry vision, loss of vision, nausea, vomiting, abdominal pain, fever, chills, back pain, or any other complaints. Prescriptions: New cefuroxime axetil 250 mg tablet 250 mg PO BID 7 Days Qty: 14 0RF ondansetron 4 mg tablet,disintegrating 4 mg PO Q8H 3 Days Qty: 9 0RF No Action famotidine [Pepcid] 20 mg tablet 20 mg PO DAILY PRN (Reason: abdominal discomfort) Qty: 30 0RF ondansetron 4 mg tablet,disintegrating 4 mg PO Q8H PRN (Reason: nausea and vomiting) Qty: 20 0RF levofloxacin 500 mg tablet 500 mg PO DAILY Qty: 10 0RF ondansetron HCl 4 mg tablet 4 mg PO Q6H PRN (Reason: nausea and vomiting) Qty: 14 0RF phenazopyridine 100 mg tablet 100 mg PO TID Qty: 7 0RF ondansetron 4 mg tablet,disintegrating 4 mg PO Q8H PRN (Reason: nausea and vomiting) Qty: 14 0RF cefuroxime axetil 250 mg tablet 250 mg PO BID 6 Days Qty: 12 0RF Referrals: [facility] Family Medicine [Provider Group] (Call to establish and follow up with a primary care provider. If you already have a primary care provider, please follow up with them.) [facility] [Provider Group] (Call to establish and follow up with a primary care provider. If you already have a primary care provider, please follow up with them.) [facility] Primary Care,Deena [Provider Group] (Call to establish and follow up with a primary care provider. If you already have a primary care provider, please follow up with them.) Stand Alone Forms: Work/School Release Interventions: ED Discharge Assessment Last Done: 02/21/24 08:37 Print Language: Urdu
[2024-02-21] MEDS: 0.9 % Sodium Chloride 1,000 ML 999 ML IV (06:50)
[2024-02-21] MEDS: ondansetron HCL 4 MG/2 ML VIAL IVPUSH (06:50)
[2024-02-21 07:46] VITALS: BP 122/66; PULSE 61; RESP 18; TEMP 36.6; O2SAT 98
[2024-02-21 08:37] VITALS: BP 124/76; PULSE 55; RESP 16; TEMP 36.6; O2SAT 98
[2024-02-21 08:53] LABS: Influenza A PCR NEGATIVE (Negative); Influenza B PCR NEGATIVE (Negative); Resp Syncy Virus RNA Qual PCR NEGATIVE (Negative); SARS COV2 PCR INHOUSE NEGATIVE (Negative)
== END 2024-02-21 08:38 | disposition home or self-care (01) ==
PROVIDERS: Physician Assistant Medical; Emergency Provider Emergency Medicine
DX: N39.0 Urinary tract infection, site not specified (principal); R11.2 Nausea with vomiting, unspecified; Z11.52 Encounter for screening for COVID-19; Z20.822 Contact with and (suspected) exposure to COVID-19; Z79.899 Other long term (current) drug therapy
CPT/HCPCS: 0241U; 36415; 80053; 81001; 83690; 85027; 96361; 96374; 99284; J2405

== ENCOUNTER 2024-02-22 19:47 | Emergency (ER) | payer OTHER, SELFPAY | END 2024-02-22 21:29 | disposition left against medical advice (07) | PROVIDERS: Emergency Provider Emergency Medicine | DX: R11.10 Vomiting, unspecified (principal); R51.9 Headache, unspecified ==

== ENCOUNTER 2024-08-28 22:35 | Emergency (ER) | payer OTHER, SELFPAY ==
[2024-08-28 22:38] VITALS: BP 139/104; PULSE 74; RESP 16; TEMP 36.8; O2SAT 96; BMI 29.0
[2024-08-28 22:56] LABS: MANUAL DIFF FLAG NO
[2024-08-28 22:57] LABS: Basophils Percent Auto 0.2 % (0-2); Eosinophils Absolute Auto 0.2 X10*3/uL (0.0-0.4); Eosinophils Percent Auto 1.6 % (0-4); Hemoglobin 14.4 g/dl (12.0-16.0); Imm Gran Abs Auto 0.07 X10*3/uL (0.00-0.03); Imm Gran Pct Auto 0.5 % (0.0-0.4); Lymphocytes Absolute Auto 1.9 X10*3/uL (1.2-4.9); Lymphocytes Percent Auto 13.2 % (20-40); Mean Corpuscular HGB Conc 34.3 g/dl (31.0-35.0); Mean Corpuscular Hemoglobin 29.4 pg (27.0-33.0); Mean Corpuscular Volume 85.9 fL (80.0-98.0); Mean Platelet Volume 9.1 fL (9.4-12.3); Monocytes Absolute Auto 1.1 X10*3/uL (0.1-1.2); Monocytes Percent Auto 7.8 % (2-11); Neutrophils Absolute Auto 11.1 x10*3/uL (2.0-8.3); Neutrophils Percent Auto 76.7 % (45-73); Platelet Count 327 X10*3/uL (160-400); Red Blood Count 4.89 X10*6/uL (4.20-5.50); Red Cell Distribution Width 12.6 % (11.0-16.0); White Blood Count 14.4 X10*3/uL (4.8-10.8)
[2024-08-28 22:58] LABS: Appearance Urine Cloudy; Color Urine Yellow; Glucose Urine UA Negative (Negative); Leukocyte Esterase Urine Small (1+) (Negative); Nitrite Urine Negative (Negative); PH >= 9.0 (5.0-9.0); Specific Gravity - Urine >= 1.030 (1.005-1.025); UMIC TRIGGER UACC YES; Urine Blood Negative (Negative); Urine Ketones 40 mg/dL (Negative); Urine Protein 30 (1+) mg/dL (Neg-Trace)
[2024-08-28 22:59] LABS: UPreg QC Valid YES; Urine Pregnancy NEGATIVE (NEGATIVE)
[2024-08-28 23:12] LABS: Bacteria Urine 2+ (None Seen); Hyaline Casts Urine 0-2 /LPF (0-2); RBC Urine 0-2 /HPF (0-2); UACC Culture Trigger YES
[2024-08-28 23:16] LABS: Anion Gap 12 (12-20); Blood Urea Nitrogen 8 mg/dL (9-16); Calcium 9.7 mg/dL (8.4-10.2); Carbon Dioxide 27 mmol/L (22-29); Chloride 103 mmol/L (96-108); Creatinine Clr Calc Pharmacy 145.7; Estimated Glomerular Filt Rate > 60; Glucose Random 110 mg/dL (60-115); Potassium 3.9 mmol/L (3.3-5.1); Sodium 138 mmol/L (135-145)
== END 2024-08-29 02:11 | disposition left against medical advice (07) ==
LOC: HO.ED 08-29 02:08
PROVIDERS: Emergency Provider Emergency Medicine
DX: M54.50 Low back pain, unspecified (principal); R11.2 Nausea with vomiting, unspecified; Z79.899 Other long term (current) drug therapy
CPT/HCPCS: 36415; 80048; 81001; 81025; 85025; 87086; 99282

== ENCOUNTER 2024-09-12 21:23 | Emergency (ER) | payer OTHER, SELFPAY ==
[2024-09-12 21:29] VITALS: BP 122/80; PULSE 70; RESP 16; TEMP 36.9; O2SAT 97; BMI 29.0
[2024-09-12 21:56] LABS: MANUAL DIFF FLAG NO
[2024-09-12 22:01] LABS: Basophils Percent Auto 0.3 % (0-2); Eosinophils Absolute Auto 0.1 X10*3/uL (0.0-0.4); Eosinophils Percent Auto 1.2 % (0-4); Hemoglobin 14.8 g/dl (12.0-16.0); Imm Gran Abs Auto 0.02 X10*3/uL (0.00-0.03); Imm Gran Pct Auto 0.2 % (0.0-0.4); Lymphocytes Absolute Auto 2.5 X10*3/uL (1.2-4.9); Lymphocytes Percent Auto 20.5 % (20-40); Mean Corpuscular HGB Conc 34.4 g/dl (31.0-35.0); Mean Corpuscular Hemoglobin 29.1 pg (27.0-33.0); Mean Corpuscular Volume 84.6 fL (80.0-98.0); Mean Platelet Volume 9.2 fL (9.4-12.3); Monocytes Absolute Auto 0.7 X10*3/uL (0.1-1.2); Monocytes Percent Auto 5.9 % (2-11); Neutrophils Absolute Auto 8.7 x10*3/uL (2.0-8.3); Neutrophils Percent Auto 71.9 % (45-73); Platelet Count 367 X10*3/uL (160-400); Red Blood Count 5.08 X10*6/uL (4.20-5.50); Red Cell Distribution Width 12.4 % (11.0-16.0); White Blood Count 12.1 X10*3/uL (4.8-10.8)
[2024-09-12 22:23] LABS: Alanine Aminotransferase 14 U/L (0-31); Albumin Level 4.1 g/dL (3.5-5.0); Alkaline Phosphatase 72 U/L (39-117); Anion Gap 13 (12-20); Aspartate Amino Transferase 13 U/L (5-31); Bilirubin Total 0.2 mg/dL (0.0-1.0); Blood Urea Nitrogen 9 mg/dL (9-16); Carbon Dioxide 29 mmol/L (22-29); Chloride 104 mmol/L (96-108); Creatinine Clr Calc Pharmacy 129.3; Estimated Glomerular Filt Rate > 60; Glucose Random 129 mg/dL (60-115); HCG Quantitative < 2 mIU/mL; Potassium 3.8 mmol/L (3.3-5.1); Sodium 142 mmol/L (135-145)
[2024-09-13 00:21] VITALS: BP 125/80; PULSE 68; RESP 18; TEMP 36.9; O2SAT 99
--- NOTE | 2024-09-13 01:01 | ED_ITS ---
HPI - Headache General Chief Complaint: Headache Stated Complaint: migraine/vomiting Time Seen by Provider: 09/13/24 01:01 History of Present Illness ED Provider: Diego MOCK Narrative: The patient is a 24-year-old female who comes to the emergency room because of a headache. She says that she has a history of migraine headaches. She had a headache that she thought was worse than her usual migraines a [facility] and was treated felt better. Yesterday, on Friday she rested and took it easy after her ER visit on Friday. Today however her headache returned and gradually worsened to the point where she felt she needed to be seen in the emergency room again and so she came to the hospital here. She has not had a fever. There is associated photophobia. Related Data Previous Rx's ?Medication ?Instructions ?Recorded levofloxacin 500 mg tablet 500 mg PO DAILY #10 tabs 09/08/23 ondansetron HCl 4 mg tablet 4 mg PO Q6H PRN nausea and 09/08/23 vomiting #14 tabs phenazopyridine 100 mg tablet 100 mg PO TID 6 doses #7 tabs 09/08/23 cefuroxime axetil 250 mg tablet 250 mg PO BID 6 days #12 tabs 11/08/23 ondansetron 4 mg disintegrating 4 mg PO Q8H PRN nausea and 11/08/23 tablet vomiting #14 tabs famotidine 20 mg tablet (Pepcid) 20 mg PO DAILY PRN abdominal 11/27/23 discomfort #30 tabs ondansetron 4 mg disintegrating 4 mg PO Q8H PRN nausea and 11/27/23 tablet vomiting #20 tabs cefuroxime axetil 250 mg tablet 250 mg PO BID 7 days #14 tabs 02/21/24 ondansetron 4 mg disintegrating 4 mg PO Q8H 3 days #9 tabs 02/21/24 tablet Allergies Allergy/AdvReac Type Severity Reaction Status Date / Time No Known Allergies Allergy Verified 09/12/24 21:31 [No Known Allergies*] Review of Systems 2 Review of Systems: Yes all other systems are reviewed and are negative [facility] Past Medical History Medical History Acute UTI Social History Social History (Reviewed 02/21/24 @ 08:36 by DANDRE Shaw Alcohol intake: never Smoked in Last 30 Days: No Use of substances other than those prescribed or required for medical reasons: Yes Substance Use Type: Marijuana Substance Use Frequency: Chronic Longstanding Advance Directives: No Advance Directives Information Provided: Yes Do you have a plan to hurt others: No Plan Patient : No Physical Exam 2 Vital Signs: Vital Signs: Last Vital Signs Temp 98.2 F 09/13/24 02:44 Pulse 62 09/13/24 02:44 Resp 12 09/13/24 02:44 BP 117/65 09/13/24 02:44 Pulse Ox 99 09/13/24 02:44 O2 Del Method Room Air 09/13/24 02:44 BMI result Body Mass Index 29.0 Const: Other: The patient had fallen asleep while waiting to be seen. She was easily woken to a normal mental status although she seemed quite photophobic. Pleasant and cooperative. She did not seem toxic but she did seem mildly uncomfortable and photophobic. HEENT: Other: Face is symmetrical. Mucous membranes moist. Eyes: Other: Pupils are round equal, conjunctivae clear, extraocular movements intact Neck: Neck: Yes supple Resp: Effort & Inspection: normal respiratory effort Auscultation: clear to auscultation bilaterally Cardio: Rate: regular rate Rhythm: regular rhythm Heart sounds: S1 normal heart sound present and S2 normal heart sound present GI: Other: Abdomen is soft and nontender Skin: Other: Skin is dry and unremarkable Neuro: Other: The patient is awake and alert with a normal mental status. She seems photophobic. She has a supple neck. Cranial nerves are grossly intact. She moves her extremities normally and seems grossly neurologically intact. Extrem: Other: No peripheral edema Medications Administered Discontinued Medications Generic Name Dose Route Start Last Admin Trade Name Freq PRN Reason Stop Dose Admin Dexamethasone Sodium Phosphate 4 mg 09/13/24 02:32 09/13/24 02:41 Dexamethasone Sod Phosphate 4 Mg/Ml Vial IVPUSH 09/13/24 02:33 4 mg ONCE ONE Administration Diphenhydramine HCl 50 mg 09/13/24 01:05 09/13/24 01:19 Diphenhydramine Hcl 50 Mg/Ml Vial IVPUSH 09/13/24 01:06 50 mg ONCE ONE Administration Sodium Chloride 1,000 mls @ 999 mls/hr 09/13/24 01:15 09/13/24 02:22 Ns IV 09/13/24 02:15 Infused .Q1H1M JAYASHREE Infusion Ketorolac Tromethamine 15 mg 09/13/24 01:05 09/13/24 01:19 Ketorolac Tromethamine 15 Mg/Ml Vial IVPUSH 09/13/24 01:06 15 mg ONCE ONE Administration Metoclopramide HCl 10 mg 09/13/24 01:05 09/13/24 01:19 Metoclopramide Hcl 10 Mg/2 Ml Vial IVPUSH 09/13/24 01:06 10 mg ONCE ONE Administration Medical Decision Making Medical Decision Making [facility] Narrative: The patient is a 24-year-old female who presents because of a headache. She says she has a history of headaches. She had a similar headache 2 days ago that was treated at [facility]. She was reasonably well yesterday but the headache returned this morning. The headache is not associated with any fevers, sweats, chills. the headache is associated with photophobia. On exam the patient looks uncomfortable but nontoxic. I do not think her description of the headache is consistent with either meningitis or subarachnoid hemorrhage. She has had previous headaches which have been similar although less severe. The patient was treated with metoclopramide, ketorolac, diphenhydramine, and IV fluids. She felt considerably better and felt well enough to go home. She was therefore given 4 mg of IV dexamethasone as well to help try to prevent rebound headache. She should follow up with her regular doctor at the [address] [place] [address]. Lab Data 09/12/24 21:52 09/12/24 21:52 Labs: Lab Results 09/12/24 Range/Units 21:52 WBC 12.1 H (4.8-10.8) X10*3/uL RBC 5.08 (4.20-5.50) X10*6/uL Hgb 14.8 (12.0-16.0) g/dl Hct 43.0 (37.0-47.0) % MCV 84.6 (80.0-98.0) fL MCH 29.1 (27.0-33.0) pg MCHC 34.4 (31.0-35.0) g/dl RDW 12.4 (11.0-16.0) % Plt Count 367 (160-400) X10*3/uL MPV 9.2 L (9.4-12.3) fL Immature Gran % (Auto) 0.2 (0.0-0.4) % Neut % (Auto) 71.9 (45-73) % Lymph % (Auto) 20.5 (20-40) % [place] % (Auto) 5.9 (2-11) % Eos % (Auto) 1.2 (0-4) % Baso % (Auto) 0.3 (0-2) % Lymph # (Auto) 2.5 (1.2-4.9) X10*3/uL [place] # (Auto) 0.7 (0.1-1.2) X10*3/uL Eos # (Auto) 0.1 (0.0-0.4) X10*3/uL Baso # (Auto) 0.0 (0.0-0.2) X10*3/uL Abs Immat Gran (auto) 0.02 (0.00-0.03) X10*3/uL Absolute Neuts (auto) 8.7 H (2.0-8.3) x10*3/uL Absolute Nucleated RBC 0.000 (0.0-0.012) X10*3/uL Nucleated RBC % (auto) 0.0 (0.0-0.2) /100WBC Sodium 142 (135-145) mmol/L Potassium 3.8 (3.3-5.1) mmol/L Chloride 104 (96-108) mmol/L Carbon Dioxide 29 (22-29) mmol/L Anion Gap 13 (12-20) BUN 9 (9-16) mg/dL Creatinine 0.71 (0.5-1.4) mg/dL Estim Creat Clear Calc 129.3 Estimated GFR > 60 Random Glucose 129 H (60-115) mg/dL Calcium 9.0 D (8.4-10.2) mg/dL Total Bilirubin 0.2 (0.0-1.0) mg/dL AST 13 (5-31) U/L ALT 14 (0-31) U/L Alkaline Phosphatase 72 (39-117) U/L Total Protein 7.0 (6.5-8.0) g/dL Albumin 4.1 (3.5-5.0) g/dL Beta HCG, Quant < 2 mIU/mL Discharge Plan Discharge Clinical Impression: Migraine headache Patient Disposition: Home, Self-Care Instructions: Migraine Headache (ED) Additional Instructions: Please rest and take it easy. Please follow up with your regular doctor's office soon to discuss these headaches further. Return to the emergency room if significantly worse. Prescriptions: No Action famotidine [Pepcid] 20 mg tablet 20 mg PO DAILY PRN (Reason: abdominal discomfort) Qty: 30 0RF ondansetron 4 mg tablet,disintegrating 4 mg PO Q8H PRN (Reason: nausea and vomiting) Qty: 20 0RF cefuroxime axetil 250 mg tablet 250 mg PO BID 7 Days Qty: 14 0RF ondansetron 4 mg tablet,disintegrating 4 mg PO Q8H 3 Days Qty: 9 0RF levofloxacin 500 mg tablet 500 mg PO DAILY Qty: 10 0RF ondansetron HCl 4 mg tablet 4 mg PO Q6H PRN (Reason: nausea and vomiting) Qty: 14 0RF phenazopyridine 100 mg tablet 100 mg PO TID Qty: 7 0RF ondansetron 4 mg tablet,disintegrating 4 mg PO Q8H PRN (Reason: nausea and vomiting) Qty: 14 0RF cefuroxime axetil 250 mg tablet 250 mg PO BID 6 Days Qty: 12 0RF Referrals: [facility] [Provider Group] (migraine) Interventions: ED Discharge Assessment Last Done: 09/13/24 02:44 Discharge Date/Time: 09/13/24 02:45 Print Language: Slovak
[2024-09-13] MEDS: 0.9 % Sodium Chloride 1,000 ML 999 ML IV (01:19)
[2024-09-13] MEDS: Ketorolac Tromethamine 15 MG/ML VIAL IVPUSH (01:19)
[2024-09-13] MEDS: diphenhydrAMINE HCL 50 MG/ML VIAL IVPUSH (01:19)
[2024-09-13] MEDS: Metoclopramide HCl 10 MG/2 ML VIAL IVPUSH (01:19)
[2024-09-13 02:27] VITALS: BP 117/65; PULSE 62; RESP 12; TEMP 36.8; O2SAT 99
[2024-09-13] MEDS: dexAMETHasone sod phosphate 4 MG/ML VIAL IVPUSH (02:41)
[2024-09-13 02:44] VITALS: BP 117/65; PULSE 62; RESP 12; TEMP 36.8; O2SAT 99
== END 2024-09-13 02:45 | disposition home or self-care (01) ==
PROVIDERS: Emergency Provider Emergency Medicine
DX: G43.909 Migraine, unspecified, not intractable, without status migrainosus (principal); R11.2 Nausea with vomiting, unspecified; H53.149 Visual discomfort, unspecified; Z79.899 Other long term (current) drug therapy
CPT/HCPCS: 36415; 80053; 84702; 85025; 96361; 96374; 96375; 99285; J1100; J1200; J1885; J2765

== ENCOUNTER 2024-11-24 10:35 | Emergency (ER) | payer OTHER, SELFPAY ==
--- NOTE | ~2024-11-24 | CT_ITS ---
EXAMINATION: CT CERVICAL SPINE CLINICAL INFORMATION: neck pain/stiffness COMPARISON: No prior CT available, TECHNIQUE: Computed axial sagittal and coronal images acquired using department's standard protocol. This CT examination was performed using dose optimization techniques as appropriate, variously including the following: *Automated exposure control *Adjustment of mA and/or kV according to patient size (this includes techniques or standardized protocols for targeted exams where dose is matched to indication/reason for exam; i.e. extremities or head) *Use of iterative reconstruction technique CONTRAST: None DLP: 449 mGy-cm FINDINGS: SKULL BASE: Visualized structures at skull base are normal, Included facial sinuses are clear, CERVICAL VERTEBRAE: Seven cervical vertebrae identified maintaining proper height and alignment, ATLANTOAXIAL AND ATLANTOOCCIPITAL ARTICULATION: Included occipital condyle are properly articulating with C1, measuring of C1 is intact. Proper articulation of the odontoid process with C1. POSTERIOR SPINES and lateral transverse processes: All are intact. DISCS: Intervertebral disc spaces are preserved. PREVERTEBRAL SOFT TISSUE: Within normal limits, no evidence of prevertebral soft tissue swelling. Visualized portion of the trachea larynx are normal. LUNG APICES: Included lung apices are clear bilaterally. Paravertebral soft tissue including LYMPH NODE AND SALIVARY GLANDS THYROID: Paravertebral soft tissue including cervical lymph nodes are within normal limits. Included paranasal and salivary unremarkable. CT/CT cervical spine wo IV con IMPRESSION: No CT evidence of cervical spine fracture. Electronically signed by: Jessie Mo MD 11/24/2024 11:47 AM [facility] [place]
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
[2024-11-24 10:39] VITALS: BP 148/100; PULSE 78; O2SAT 98
[2024-11-24 10:40] VITALS: BP 126/79; PULSE 95; RESP 16; TEMP 36.7; O2SAT 96; BMI 29.9
--- NOTE | 2024-11-24 10:47 | PC.NURSE ---
pt bilateral hands are red, pt states they have a burning feeling to them, additionally pt states her neck feels stiff. 07/10 pain
[2024-11-24] MEDS: Bacitracin Oint 0.9 GM PACKET 1 APPL TOPICAL (11:42)
[2024-11-24 12:15] VITALS: BP 139/88; PULSE 68; RESP 16; TEMP 37.1; O2SAT 97
[2024-11-24 12:26] VITALS: BP 139/88; PULSE 68; RESP 16; TEMP 37.1; O2SAT 97
== END 2024-11-24 12:27 | disposition home or self-care (01) ==
PROVIDERS: Emergency Provider Emergency Medicine
DX: S13.4XXA Sprain of ligaments of cervical spine, initial encounter (principal); S19.9XXA Unspecified injury of neck, initial encounter; M54.2 Cervicalgia; V43.52XA Car driver injured in collision with other type car in traffic accident, initial encounter; Y93.89 Activity, other specified; Y92.488 Other paved roadways as the place of occurrence of the external cause; Y99.8 Other external cause status
CPT/HCPCS: 72125; 99283; 99284

== ENCOUNTER 2025-01-19 00:30 | Emergency (ER) | payer OTHER, SELFPAY ==
[2025-01-19 01:07] VITALS: BP 141/87; PULSE 80; RESP 16; TEMP 37.2; O2SAT 96; BMI 30.1
[2025-01-19 02:02] LABS: Basophils Percent Auto 0.3 % (0-2); Eosinophils Absolute Auto 0.2 X10*3/uL (0.0-0.4); Eosinophils Percent Auto 1.4 % (0-4); Hematocrit 42.3 % (37.0-47.0); Hemoglobin 14.3 g/dl (12.0-16.0); Imm Gran Abs Auto 0.03 X10*3/uL (0.00-0.03); Imm Gran Pct Auto 0.3 % (0.0-0.4); Lymphocytes Absolute Auto 2.8 X10*3/uL (1.2-4.9); Lymphocytes Percent Auto 24.4 % (20-40); MANUAL DIFF FLAG NO; Mean Corpuscular HGB Conc 33.8 g/dl (31.0-35.0); Mean Corpuscular Hemoglobin 28.3 pg (27.0-33.0); Mean Corpuscular Volume 83.8 fL (80.0-98.0); Monocytes Absolute Auto 0.8 X10*3/uL (0.1-1.2); Monocytes Percent Auto 7.1 % (2-11); Neutrophils Absolute Auto 7.7 x10*3/uL (2.0-8.3); Neutrophils Percent Auto 66.5 % (45-73); Platelet Count 337 X10*3/uL (160-400); Red Blood Count 5.05 X10*6/uL (4.20-5.50); Red Cell Distribution Width 12.8 % (11.0-16.0); White Blood Count 11.6 X10*3/uL (4.8-10.8)
[2025-01-19 02:04] LABS: Appearance Urine Cloudy; Color Urine Yellow; Glucose Urine UA Negative (Negative); Leukocyte Esterase Urine Trace (Negative); Nitrite Urine Negative (Negative); Specific Gravity - Urine >= 1.030 (1.005-1.025); UMIC TRIGGER UACC YES; Urine Blood Negative (Negative); Urine Ketones Negative (Negative); Urine Protein Trace mg/dL (Neg-Trace)
[2025-01-19 02:06] LABS: UPreg QC Valid YES; Urine Pregnancy NEGATIVE (NEGATIVE)
[2025-01-19 02:07] LABS: Bacteria Urine 2+ (None Seen); Hyaline Casts Urine 0-2 /LPF (0-2); RBC Urine 0-2 /HPF (0-2); UACC Culture Trigger YES
[2025-01-19 02:15] LABS: Anion Gap 13 (12-20); Blood Urea Nitrogen 14 mg/dL (9-16); Calcium 9.2 mg/dL (8.4-10.2); Carbon Dioxide 24 mmol/L (22-29); Chloride 109 mmol/L (96-108); Creatinine Clr Calc Pharmacy 158.4; Estimated Glomerular Filt Rate > 60; Glucose Random 99 mg/dL (60-115); Potassium 4.1 mmol/L (3.3-5.1); Sodium 142 mmol/L (135-145)
[2025-01-19 02:55] LABS: Influenza A PCR NEGATIVE (Negative); Influenza B PCR NEGATIVE (Negative); Resp Syncy Virus RNA Qual PCR NEGATIVE (Negative); SARS COV2 PCR INHOUSE NEGATIVE (Negative)
[2025-01-19 04:48] VITALS: BP 135/75; PULSE 60; RESP 16; TEMP 36.8; O2SAT 96
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
--- OUTSIDE RECORDS SUMMARY | 2025-01-19 08:15 | XMS_ITS | Clinical Summary ---
Author Organization [facility] Address [address] [place] [address] Phone Care Team Providers Care Timber Feller Name Role Phone Juana Salgado MD Primary Care Provider [phone] Allergies Active Allergy Reactions Criticality Noted Date Comments Pollen Extracts 12/19/2016 Medications No known medications Active Problems Problem Noted Date Diagnosed Date Left ovarian cyst 09/24/2024 Encounters Date Type Department Care Team Description 11/02/2024 1:00 PM EST Office Visit Obstetrics & Gynecology - [address] [id number] Katie Franks CNM Chlamydia contact, treated (Primary Dx); Screen for STD (sexually transmitted disease); Vaginal odor from Last 3 Months Immunizations Name Administration Dates Next Due Tdap Tetanus diptheria acell ular pertussis (Boostrix; Adacel) 7yo and older 03/25/2017 Surgical History Surgery Date Site/Laterality Comments SECTION 2017 PROCEDURE: HISTORICAL DELIVERY Medical History Medical History Date Comments Marijuana abuse DX:Marijuana abu se Asthma DX:Asthma Tobacco abuse DX:Tobacco abuse S/P section 05/15/2017 DX:S/P cesa rean section Pyelonephritis 08/2023 DX:Pyelonephriti s; COMMENT: seen in [facility] Chlamydia 08/2023 DX:Chlamydia Family History Medical History Relation Name Comments No Known Problems Brother 1 Hyperlipidemia Brother 2 Diabetes Father Depression Mother Other: Mini Stroke Mother Hypertension Sister 1 No Known Problems Sister 2 1/2 Relation Name Status Comments Brother 1 Alive Brother 2 Alive Father Alive Mother Alive Sister 1 Alive Sister 2 /2 Alive Social History Tobacco Use Types Packs/Day Years Used Date Smoking Tobacco: Former Cigarettes Q uit: 12/25/2016 Smokeless Tobacco: Never Alcohol Use Standard Drinks/Week Comments No 0 (1 standard drink = 0.6 oz pur e alcohol) Comments No Sex and Gender Information Value Date Recorded Sex Assigned at Not on file Legal Sex Female 6:18 PM EST Gender Identity Not on file Sexual Orientation Not on file Obstetrics History Para Term AB IAB SAB Ectopic Multiple Livin g Live Births 1 1 12 01 1 Date Outcome GA Total Labor Labor/2nd/3rd Weight Sex Type Anes PTL Edwige A1 A5 Name Clin 2016 Term 40w 6d 2990 g (105.5 oz) F CS-LT ranv Epidur al N Livin g [address] [facility] Complications: Intolera nce Delivery Location:[facility] Comments:Arterial cord pH: 7.21 Last Filed Vital Signs Vital Sign Reading Time Taken Comments Blood Pressure 104/72 11/02/2024 1:03 PM EST Pulse 71 11/02/2024 1:03 PM EST Temperature - - Respiratory Rate - - Oxygen Saturation - - Inhaled Oxygen Concentration - - Weight 85.3 kg (188 lb) 11/02/2024 1:03 PM EST Height 167.6 cm (5' 6 ) 11/02/2024 1:03 PM EST Body Mass Index 30.34 11/02/2024 1:03 PM EST Plan of Treatment Health Maintenance Due Date Last Done Comments HPV Vaccines (1 - 3-dose series) 2013 Hepatitis B Vaccines (1 of 3 - 19+ 3-dose series) 2017 Pneumococcal Vaccine: Pediatrics (0 to 5 Years) and At-Risk Patients (6 to 64 Years) (1 of 2 - PCV) 2017 Depression Screening 11/02/2022 Social Influencers of Health Screening 11/02/2022 COVID-19 Vaccine (3 - 2023-2 5 season) 2024 08/04/2022, 06/06/2022 Influenza Vaccine (#1) 2024 , 08/24/2018 Cervical Cancer Screening: Pap Smear 09/17/2026 09/17/2023, 09/17/2023 DTaP,Tdap,and Td Vaccines (2 - Td or Tdap) 03/25/2027 03/25/2017 Gonorrhea/Chlamydia Screening Discontinued , 09/01/2024 HIV Screening Completed 11/02/2024, 09/17/2023 Hepatitis C Screening Completed 11/02/2024 , 09/17/2023 HIB Vaccines Aged Out No longer eligi ble based on patient's age to complete this topic Hepatitis A Vaccines Aged Out No long er eligible based on patient's age to complete this topic IPV Vaccines Aged Out No longer eligi ble based on patient's age to complete this topic MMR Vaccines Aged Out No longer eligi ble based on patient's age to complete this topic Meningococcal ACWY Vaccine Aged Out N o longer eligible based on patient's age to complete this topic Meningococcal B Vacine Aged Out No lo nger eligible based on patient's age to complete this topic RSV Immunization Patients Under 20 months Aged Out No longer eligible based on patient's age to complete this topic Varicella Vaccines Aged Out No longer eligible based on patient's age to complete this topic Procedures Procedure Name Priority Date/Time Associated Diagnosis Comments HIV 1, 2 ANTIBODY, P24 ANTIGEN WITH REFLEX TO DIFFERENTIATION Routine 11/02/2024 1:33 PM EST Screen for STD (sexually transmitted disease) TREPONEMA PALLIDUM ANTIBODY WITH REFLEX TO RPR AND PARTICLE AGGLUTINATION Routine 11/02/2024 1:33 PM EST Screen for STD (sexually transmitted disease) HEPATITIS C ANTIBODY Routine 11/02/2024 1:33 PM EST Screen for STD (sexually transmitted disease) TRICHOMONAS VAGINALIS ANTIGEN Routine 11/02/2024 1:24 PM EST Screen for STD (sexually transmitted disease) Vaginal odor WET PREP, GENITAL Routine 11/02/2024 1:2 4 PM EST Screen for STD (sexually transmitted disease) Vaginal odor CHLAMYDIA TRACHOMATIS AND NEISSERIA GONORRHOEAE PCR Routine 11/02/2024 1:24 PM EST Screen for STD (sexually transmitted disease) Chlamydia contact, treated PAP SMEAR Routine 09/17/2023 from Last 3 Months or Most Recently Relevant to Health Maintenance Results * Hepatitis C antibody (11/02/2024 1:33 PM EST) Hepatitis C Antibody Negative Negative LAB CHEMISTRY METHOD 11/02/2024 4:40 PM EST [facility] Blood Venous blood specimen / Unknown Venipuncture / Unknown 11/02/2024 1:33 PM EST 11/02/2024 2:44 PM EST [facility] BLOOD ORDERABLES Final Re sult Performing Organization Address [facility] de Phone Number [facility] [address] [place] [address], [place] [phone] * HIV 1,2 antibody, p24 antigen with reflex to differentiation (11/02/2024 1:33 PM EST) Pathologist [facility] HIV Combo AB/AG Negative Negative LAB CHEMISTRY METHOD 11/02/2024 4:41 PM EST [facility] Blood Venous blood specimen / Unknown Venipuncture / Unknown 11/02/2024 1:33 PM EST 11/02/2024 2:44 PM EST Narrative [facility] - 11/02/2024 4:41 PM EST This assay is a 4th generation assay allowing for earlier detection of HIV infection by detecting the presence of the HIV-1 p24 antigen as well as the traditional antibodies to HIV type 1 (including group O) and type 2. ??Use of a 4th generation assay is the current CDC recommendation for HIV screening. [facility] BLOOD ORDERABLES Final Re sult Performing Organization Address [facility]/ZIP Co de Phone Number [facility] [address] [place] [address], [place] [phone] * Treponema pallidum antibody with reflex to RPR and particle agglutination (11/02/2024 1:33 PM EST) T. Pallidum Antibodies Negative Negative LAB CHEMISTRY METHOD 11/02/2024 4:14 PM EST [facility] Blood Venous blood specimen / Unknown Venipuncture / Unknown 11/02/2024 1:33 PM EST 11/02/2024 2:44 PM EST [facility] BLOOD ORDERABLES Final Re sult [facility] [address] [place] [address], [place] [phone] * Trichomonas vaginalis antigen (11/02/2024 1:24 PM EST) Trichomonas vaginalis Negative Negative 11/02/2024 8:26 PM EST [facility] Swab Vaginal structure / Unknown Non-blood Collection / Unknown 11/02/2024 1:24 PM EST 11/02/2024 4:13 PM EST [facility] MICROBIOLOGY - GENERAL OR DERABLES Final Result Performing Organization Address City/[facility]/ZIP Co de Phone Number [facility] [address] [place] [address], [place] [phone] * Chlamydia trachomatis and Neisseria gonorrhoeae molecular study (11/02/2024 1:24 PM EST) Neisseria gonorrhoeae PCR Negative Negative LAB MOLECULAR DIAGNOSTICS METHOD 11/03/2024 10:30 AM EST [facility] Chlamydia trachomatis PCR Negative Negative LAB MOLECULAR DIAGNOSTICS METHOD 11/03/2024 10:30 AM EST [facility] Swab Cervix uteri structure / Unknown Non-blood Collection / Unknown 11/02/2024 1:24 PM EST 11/02/2024 4:13 PM EST [facility] MICROBIOLOGY - GENERAL OR DERABLES Final Result Performing Organization Address City/[facility]/ZIP Co de Phone Number [facility] [address] [place] [address], [place] [phone] * (ABNORMAL) Wet prep, genital (11/02/2024 1:24 PM EST) Clue Cells, Wet Prep Positive(A) Negative 11/02/2024 8:25 PM EST [facility] Yeast, Wet Prep Negative Negative 11/02/2024 8:25 PM EST [facility] Trichomonas, Wet Prep Indeterminate Negative 11/02/2024 8:25 PM EST [facility] Comment:Refer to Trichomonas antigen. Swab Vaginal structure / Unknown Non-blood Collection / Unknown 11/02/2024 1:24 PM EST 11/02/2024 4:13 PM EST [facility] MICROBIOLOGY - GENERAL OR DERABLES Final Result Performing Organization Address City/[facility]/ZIP Co de Phone Number [facility] [address] [place] [address], [place] [phone] * Pap smear (09/17/2023) 09/17/2023 Narrative HISTORICAL TESTING LAB RESULTING AGENCY - 10/08/2023 11:51 AM EST [id number] THINPREP PAP, IMAGED: NEGATIVE FOR SQUAMOUS INTRAEPITHELIAL LESION AND MALIGNANCY . SHIFT IN ADELA, SUGGESTIVE OF BACTERIAL VAGINOSIS. NORAH DELACRUZ(ASCP) (CASE ELECTRONICALLY SIGNED 10 08 2023) ADEQUACY: SATISFACTORY ENDOCERVICAL/TRANSFORMATION ZONE COMPONENT ABSENT. SOURCE: THINPREP PAP HPV IF ASCUS, CERVICAL, IMAGED CLINICAL INFORMATION: HPV IF DIAGNOSIS OF ASCUS. HORMONES, PAP HX: FIRST PAP, LMP 08/31/23, [[id number]] [facility] CYTOLOGY ORDERABLES Final Result HISTORICAL TESTING LAB RESULTING AGENCY from Last 3 Months or Most Recently Relevant to Health Maintenance Insurance ED [facility] MEDICAID ADVANTAGE Care Teams Timber Feller Relationship Specialty Start Date End Date Juana Salgado MD [address] [place] [address] PCP - General 06/12/23
[2025-01-19 08:38] VITALS: BP 139/67; PULSE 68; RESP 16; TEMP 36.9; O2SAT 98
[2025-01-19 08:38] LABS: Amphetamine Screen Urine Not Detected (Not Detect); Barbiturates, Urine Not Detected (Not Detect); Benzodiazepines Screen Urine Not Detected (Not Detect); Buprenorphine Scr Not Detected (Not Detect); Cannabinoid Screen Urine POSITIVE (Not Detect); Cocaine Screen Urine Not Detected (Not Detect); Fentanyl, urine POSITIVE (Not Detect); Methadone Screen, Urine Not Detected (Not Detect); Opiate Screen Urine Not Detected (Not Detect); Oxycodone Screen Urine Not Detected (Not Detect); Phencyclidine Screen Urine Not Detected (Not Detect)
[2025-01-19] MEDS: Prochlorperazine Maleate 5 MG TABLET 10 MG PO (09:03)
[2025-01-19] MEDS: Ketorolac Tromethamine 30 MG/ML VIAL IM (10:14)
[2025-01-19 10:27] VITALS: BP 137/77; PULSE 77; RESP 16; TEMP 36.9; O2SAT 98
== END 2025-01-19 10:32 | disposition home or self-care (01) ==
PROVIDERS: Emergency Provider Emergency Medicine
DX: F11.93 Opioid use, unspecified with withdrawal (principal); R11.2 Nausea with vomiting, unspecified; Z03.818 Encounter for observation for suspected exposure to other biological agents ruled out
CPT/HCPCS: 0241U; 36415; 80048; 80307; 81001; 81003; 81025; 85025; 87086; 96372; 99283; 99285; J1885; S9485

== ENCOUNTER 2025-01-27 02:38 | Emergency (ER) | payer OTHER, SELFPAY ==
--- NOTE | ~2025-01-27 | CT_ITS ---
EXAMINATION: CT ABDOMEN PELVIS WITH IV CONTRAST HISTORY: abd pain, vomiting COMPARISON: There are no prior studies for comparison. TECHNIQUE: CT scan of the abdomen and pelvis was performed following administration of 85 mL Omnipaque 350 using standard departmental protocol. Coronal and sagittal reformatted images were generated and reviewed. Oral contrast material was not administered at the request of the referring physician. This CT exam was performed with one or more of the following dose reduction techniques: automated exposure control, adjustment of the mA and/or kV according to patient size, use of iterative reconstruction technique. DLP: 583 mGy-cm FINDINGS: LOWER CHEST: The visualized lung bases are clear. There is no pleural effusion. CARDIOVASCULATURE: The heart is normal in size. There is no pericardial effusion. LIVER: The liver is normal in size and contour. No liver mass is identified. The hepatic and portal veins are patent. GALLBLADDER / BILE DUCTS: The gallbladder is unremarkable. There is no intra or extrahepatic biliary ductal dilatation. SPLEEN: The spleen is normal in size. No focal splenic lesion is identified. PANCREAS: The pancreas is unremarkable in appearance. ADRENAL GLANDS: Within normal limits. KIDNEYS/RETROPERITONEUM: No renal calculi are identified. There is no hydronephrosis. No renal masses are identified. LYMPH NODES: No abdominal or pelvic lymphadenopathy. VASCULATURE: The abdominal aorta is normal in caliber. MESENTERY/PERITONEUM: No free fluid. No masses. There is no free intraperitoneal gas. STOMACH: The stomach is collapsed, limiting evaluation. SMALL BOWEL: The small bowel is normal in caliber. COLON: The colon is unremarkable. APPENDIX: Normal. URINARY BLADDER/PELVIC ORGANS: The urinary bladder is collapsed, limiting evaluation. The uterus and ovaries are unremarkable. BONES / SOFT TISSUES: No suspicious bony or soft tissue abnormalities. CT/CT abdomen pelvis w IV con IMPRESSION: Unremarkable contrast-enhanced CT of the abdomen and pelvis. Electronically signed by: Pasha Ventura MD 01/27/2025 08:43 AM [facility]
[2025-01-27 02:54] VITALS: BP 116/86; PULSE 74; RESP 18; TEMP 36.7; O2SAT 99; BMI 27.4
[2025-01-27 03:19] LABS: Basophils Absolute Auto 0.1 X10*3/uL (0.0-0.2); Basophils Percent Auto 0.3 % (0-2); Eosinophils Percent Auto 0.1 % (0-4); Hematocrit 43.8 % (37.0-47.0); Hemoglobin 15.4 g/dl (12.0-16.0); Imm Gran Abs Auto 0.06 X10*3/uL (0.00-0.03); Imm Gran Pct Auto 0.3 % (0.0-0.4); Lymphocytes Absolute Auto 3.2 X10*3/uL (1.2-4.9); Lymphocytes Percent Auto 17.3 % (20-40); MANUAL DIFF FLAG NO; Mean Corpuscular HGB Conc 35.2 g/dl (31.0-35.0); Mean Corpuscular Hemoglobin 28.3 pg (27.0-33.0); Mean Corpuscular Volume 80.4 fL (80.0-98.0); Mean Platelet Volume 8.9 fL (9.4-12.3); Monocytes Percent Auto 5.6 % (2-11); Neutrophils Absolute Auto 14.3 x10*3/uL (2.0-8.3); Neutrophils Percent Auto 76.4 % (45-73); Platelet Count 455 X10*3/uL (160-400); Red Blood Count 5.45 X10*6/uL (4.20-5.50); Red Cell Distribution Width 12.5 % (11.0-16.0); White Blood Count 18.7 X10*3/uL (4.8-10.8)
[2025-01-27 03:38] LABS: Alanine Aminotransferase 11 U/L (0-31); Albumin Level 4.7 g/dL (3.5-5.0); Alkaline Phosphatase 79 U/L (39-117); Anion Gap 15 (12-20); Aspartate Amino Transferase 15 U/L (5-31); Bilirubin Direct 0.3 mg/dL (0.0-0.5); Bilirubin Total 0.8 mg/dL (0.0-1.0); Blood Urea Nitrogen 13 mg/dL (9-16); Calcium 9.5 mg/dL (8.4-10.2); Carbon Dioxide 22 mmol/L (22-29); Chloride 107 mmol/L (96-108); Creatinine Clr Calc Pharmacy 127.7; Estimated Glomerular Filt Rate > 60; Glucose Random 129 mg/dL (60-115); Lipase 60 U/L (8-78); Potassium 3.2 mmol/L (3.3-5.1); Sodium 141 mmol/L (135-145); Total Protein 8.7 g/dL (6.5-8.0)
[2025-01-27 03:51] VITALS: BP 117/70; PULSE 66; RESP 18; TEMP 37; O2SAT 99
[2025-01-27] MEDS: 0.9 % Sodium Chloride 1,000 ML 999 ML IV (05:05)
--- NOTE | 2025-01-27 05:09 | PC.NURSE ---
verbal order by MD Sheila HAYWARD to order normal saline bolus and zofran for nausea/vomiting.
[2025-01-27] MEDS: ondansetron HCL 4 MG/2 ML VIAL IVPUSH (05:14)
[2025-01-27 05:21] LABS: HCG Quantitative < 2 mIU/mL
[2025-01-27 05:45] LABS: Appearance Urine Clear; Color Urine Yellow; Glucose Urine UA Negative (Negative); Leukocyte Esterase Urine Negative (Negative); Nitrite Urine Negative (Negative); Specific Gravity - Urine >= 1.030 (1.005-1.025); Urine Blood Negative (Negative); Urine Ketones 80 mg/dL (Negative); Urine Protein Trace mg/dL (Neg-Trace)
[2025-01-27 06:01] LABS: Amphetamine Screen Urine Not Detected (Not Detect); Barbiturates, Urine Not Detected (Not Detect); Benzodiazepines Screen Urine Not Detected (Not Detect); Buprenorphine Scr Not Detected (Not Detect); Cannabinoid Screen Urine POSITIVE (Not Detect); Cocaine Screen Urine Not Detected (Not Detect); Fentanyl, urine POSITIVE (Not Detect); Methadone Screen, Urine Not Detected (Not Detect); Opiate Screen Urine Not Detected (Not Detect); Oxycodone Screen Urine Not Detected (Not Detect); Phencyclidine Screen Urine Not Detected (Not Detect)
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
--- NOTE | 2025-01-27 06:40 | ED_ITS ---
HPI - General Adult General Chief complaint: Nausea/Vomiting/Diarrhea Stated complaint: vomiting Time Seen by Provider: 01/27/25 06:40 Source: patient Mode of arrival: ambulatory Limitations: no limitations History of Present Illness ED Provider: Aminata iKm PA-C HPI narrative: Patient is a 24 year old assigned female at with a history of opiate use / abuse (in recovery) and anxiety presenting to the emergency department today with nausea, vomiting, and inability to sleep. Patient states that she has been having nausea, vomiting, and a hard time sleeping despite taking hydroxyzine. Patient states that she is connected with the [facility] and is working on her recovery. Patient denies any dizziness, lightheadedness, abdominal pain, fever, chills, blurry vision, double vision, loss of vision, chest pain, difficulty breathing, shortness of breath, back pain, night sweats, pain with urination, increased urinary frequency, increased urinary urgency, blood in her urine or stool, syncope or a near syncopal episode, recent trauma or falls, bowel incontinence, bladder incontinence, or any other complaints at this time. Relieving factors: none Exacerbating factors: none Associated symptoms: nausea/vomiting Treatments prior to arrival: other (hydroxyzine) Related Data Previous Rx's ?Medication ?Instructions ?Recorded levofloxacin 500 mg tablet 500 mg PO DAILY #10 tabs 09/08/23 ondansetron HCl 4 mg tablet 4 mg PO Q6H PRN nausea and 09/08/23 vomiting #14 tabs phenazopyridine 100 mg tablet 100 mg PO TID 6 doses #7 tabs 09/08/23 cefuroxime axetil 250 mg tablet 250 mg PO BID 6 days #12 tabs 11/08/23 ondansetron 4 mg disintegrating 4 mg PO Q8H PRN nausea and 11/08/23 tablet vomiting #14 tabs famotidine 20 mg tablet (Pepcid) 20 mg PO DAILY PRN abdominal 11/27/23 discomfort #30 tabs ondansetron 4 mg disintegrating 4 mg PO Q8H PRN nausea and 11/27/23 tablet vomiting #20 tabs cefuroxime axetil 250 mg tablet 250 mg PO BID 7 days #14 tabs 02/21/24 ondansetron 4 mg disintegrating 4 mg PO Q8H 3 days #9 tabs 02/21/24 tablet acetaminophen 500 mg tablet 500 mg PO Q6H PRN fever or pain 11/24/24 (Tylenol Extra Strength) #14 tabs bacitracin 500 unit/gram topical 1 appl topical BID #30 grams 11/24/24 ointment cyclobenzaprine 5 mg tablet 5 mg PO Q8H PRN pain (scale score 11/24/24 7-10) 5 days #14 tabs lidocaine 5 % topical patch 1 patch topical DAILY PRN pain #30 11/24/24 (Lidoderm) ea naproxen 500 mg tablet 500 mg PO BID PRN pain 10 days #20 11/24/24 tabs clonidine HCl 0.1 mg tablet 0.1 mg PO TID #9 tabs 01/19/25 hydroxyzine HCl 50 mg tablet 50 mg PO TID PRN nausea and 01/19/25 vomiting #10 tabs ondansetron 4 mg disintegrating 4 mg PO Q6H PRN nausea and 01/19/25 tablet vomiting #10 tabs hydroxyzine HCl 50 mg tablet 50 mg PO TID PRN nausea and 01/27/25 vomiting #10 tabs Allergies Allergy/AdvReac Type Severity Reaction Status Date / Time No Known Allergies Allergy Verified 01/27/25 02:54 [No Known Allergies*] Review of Systems 2 Constitutional: Constitutional: Reports no additional constitutional complaints, Denies chills, Denies fever(s) and Denies night sweats Eyes: Eyes: Reports no additional eye complaints, Denies blurry vision, Denies change in vision, Denies diplopia, Denies eye discharge, Denies loss of vision and Denies eye pain ENT: Denies dizziness Cardiovascular: Cardiovascular: Reports no additional cardiovascular complaints, Denies chest pain, Denies lightheadedness, Denies Loss of Consciousness and Denies dyspnea Respiratory: Respiratory: Reports no additional respiratory complaints and Denies dyspnea Gastrointestinal: Gastrointestinal: Reports no additional gastrointestinal complaints, Denies abdominal pain, Denies melena, Denies hematochezia, Denies change in bowel habits, Denies change in stool character, Reports nausea and Reports vomiting Genitourinary: Genitourinary: Denies hematuria, Denies urinary frequency, Denies dysuria, Denies urinary incontinence, Denies urinary hesitancy and Denies urinary urgency Musculoskeletal: Musculoskeletal: Reports no additional musculoskeletal complaints, Denies numbness and Denies tingling Neurologic: Denies dizziness, Denies loss of vision, Denies numbness and Denies tingling Psychiatric: Psychiatric: Reports no additional psychiatric complaints Endocrine: Endocrine: Reports no additional endocrine complaints Hematologic/Lymphatic: Hematologic/Lymphatic: Reports no additional hematologic/lymphatic complaints Allergic/Immunologic: Allergic/Immunologic: Reports no additional allergic/immunologic complaints [facility] Past Medical History Attestation statement: The following information was validated with the patient. Source: old records reviewed and nursing notes reviewed Medical History Acute UTI Social History Social History Unable to assess alcohol history related to: Unknown Alcohol intake: never Substance Use Type: Marijuana Physical Exam ED Vital Signs: Vital Signs - 24 hr 01/27/25 02:54 01/27/25 03:51 01/27/25 09:34 Temperature 98.1 F 98.6 F 98.3 F Pulse Rate 74 66 79 Respiratory Rate 18 18 14 Blood Pressure 116/86 117/70 137/79 Pulse Oximetry 99 99 98 Oxygen Delivery Method Room Air Room Air Room Air 01/27/25 10:07 01/27/25 10:09 Temperature 98.9 F 98.9 F Pulse Rate 107 H 107 H Respiratory Rate 16 16 Blood Pressure 107/80 107/80 Pulse Oximetry 95 95 Oxygen Delivery Method Room Air Room Air BMI result Body Mass Index 27.4 Const General: cooperative, no acute distress, alert and awake Nutritional Appearance: well nourished Orientation/consciousness: patient oriented x3 Limitations: no limitations [facility] Head: Yes normal to inspection and Yes atraumatic Ears: hearing grossly normal bilaterally and external ears normal General nose exam: Normal external nose present, no nasal discharge noted and no epistaxis Face and sinus: Yes normal facial exam, No abrasion and No laceration Mouth: Normal oral and palatal mucosa present, no drooling and no muffled voice Eyes General: appearance normal, both eyes and all related structures Periorbital: periorbital findings normal Eyelids: Yes eyelids normal Conjunctivae: conjunctivae normal Pupils: Equal, round and reactive pupils present EOM: EOMs intact bilaterally Neck Neck: Yes normal visual inspection, Yes full ROM and Yes no lymphadenopathy Chest Chest palpation & inspection: normal inspection of the chest Resp Effort & Inspection: normal respiratory effort and able to speak in complete sentences GI Inspection: Yes normal to inspection Palpation (GI): Soft to palpation, not firm, nontender and no guarding Neuro General: patient oriented x3, moves all extremities and CN's II-XI intact bilaterally Cranial nerves: Yes Equal, round and reactive pupils present Cognition (Neuro): normal cognition Extrem General: Yes normal to inspection, Yes full ROM and Yes capillary refill normal Psych Appearance: grossly normal Mental Status: mental status grossly normal Affect: normal affect Attitude: cooperative Thought process: Normal thought process present Thought content: Normal thought content present Insight: Good insight present (Psych) Medications Administered Discontinued Medications Generic Name Dose Route Start Last Admin Trade Name Freq PRN Reason Stop Dose Admin Sodium Chloride 1,000 mls @ 999 mls/hr 01/27/25 05:00 01/27/25 06:09 Ns IV 01/27/25 06:00 Infused .Q1H1M JAYASHREE Infusion Iohexol 100 ml 01/27/25 08:30 01/27/25 08:30 Iohexol 350 Mg/Ml 100 Ml Infus..Btl IV 01/27/25 08:31 85 ml ONCE ONE Administration Ondansetron HCl 4 mg 01/27/25 05:08 01/27/25 05:14 Ondansetron Hcl 4 Mg/2 Ml Vial IVPUSH 01/27/25 05:09 4 mg ONCE ONE Administration Potassium Chloride 20 meq 01/27/25 06:49 01/27/25 08:36 Potassium Chloride Er 20 Meq Tab.Er.Prt PO 01/27/25 06:50 20 meq ONCE ONE Administration Trazodone HCl 25 mg 01/27/25 06:49 01/27/25 08:36 Trazodone Hcl 25 Mg Halftab PO 01/27/25 06:50 25 mg ONCE ONE Administration Medical Decision Making Medical Decision Making MDM Narrative: Patient is a 24 year old assigned female at with a history of opiate use / abuse (in recovery) and anxiety presenting to the emergency department today with nausea, vomiting, and inability to sleep. Patient's blood work showed an elevated WBC count of 18.7 and potassium of 3.2 but otherwise unremarkable. Patient's elevated WBC count is likely secondary to a stress reaction from vomiting. Patient's urine showed no acute process. Patient's EKG was unremarkable. Patient's CT abdomen/pelvis showed no acute process. I explained my physical exam findings as well as all test results to the patient. I answered all questions asked by the patient. Patient requested a refill of her hydroxyzine and stated that she also has an appointment with her PCP this afternoon. Patient received IV fluids and anti-emetics which, upon re- evaluation, she stated it helped her symptoms significantly. I stressed the importance of the patient taking her medication as directed (either prescribed or as the over the counter packaging recommends). I stressed the importance of the patient following up with her primary care provider. I stressed the importance of the patient returning to the emergency department immediately if her symptoms were to worsen or if she were to develop any dizziness, shortness of breath, difficulty breathing, chest pain, blurry vision, loss of vision, nausea, vomiting, abdominal pain, fever, chills, back pain, or any other complaints. Patient verbalized agreement and understanding with this treatment plan and discharge. Differential Diagnosis Differential Diagnoses: The differential diagnosis associated with the presentation includes Nausea Vomiting Gastroenteritis Anxiety Admission/Observation Consideration of admission/observation: Escalation of care including admission/observation considered Patient would have been admitted to the hospital had her work up had any findings where hospital admission was appropriate and her clinical presentation warranted hospital admission. Lab Data 01/27/25 03:14 01/27/25 03:14 Labs: Lab Results 01/27/25 01/27/25 Range/Units 03:14 05:36 WBC 18.7 H (4.8-10.8) X10*3/uL RBC 5.45 (4.20-5.50) X10*6/uL Hgb 15.4 (12.0-16.0) g/dl Hct 43.8 (37.0-47.0) % MCV 80.4 (80.0-98.0) fL MCH 28.3 (27.0-33.0) pg MCHC 35.2 H (31.0-35.0) g/dl RDW 12.5 (11.0-16.0) % Plt Count 455 H D (160-400) X10*3/uL MPV 8.9 L (9.4-12.3) fL Immature Gran % (Auto) 0.3 (0.0-0.4) % Neut % (Auto) 76.4 H (45-73) % Lymph % (Auto) 17.3 L (20-40) % [place] % (Auto) 5.6 (2-11) % Eos % (Auto) 0.1 (0-4) % Baso % (Auto) 0.3 (0-2) % Lymph # (Auto) 3.2 (1.2-4.9) X10*3/uL [place] # (Auto) 1.0 (0.1-1.2) X10*3/uL Eos # (Auto) 0.0 (0.0-0.4) X10*3/uL Baso # (Auto) 0.1 (0.0-0.2) X10*3/uL Abs Immat Gran (auto) 0.06 H (0.00-0.03) X10*3/uL Absolute Neuts (auto) 14.3 H (2.0-8.3) x10*3/uL Absolute Nucleated RBC 0.000 (0.0-0.012) X10*3/uL Nucleated RBC % (auto) 0.0 (0.0-0.2) /100WBC Sodium 141 (135-145) mmol/L Potassium 3.2 L D (3.3-5.1) mmol/L Chloride 107 (96-108) mmol/L Carbon Dioxide 22 (22-29) mmol/L Anion Gap 15 (12-20) BUN 13 (9-16) mg/dL Creatinine 0.70 (0.5-1.4) mg/dL Estim Creat Clear Calc 127.7 Estimated GFR > 60 Random Glucose 129 H (60-115) mg/dL Calcium 9.5 (8.4-10.2) mg/dL Magnesium 2.3 (1.6-2.6) mg/dL Total Bilirubin 0.8 (0.0-1.0) mg/dL Direct Bilirubin 0.3 (0.0-0.5) mg/dL AST 15 (5-31) U/L ALT 11 (0-31) U/L Alkaline Phosphatase 79 (39-117) U/L Total Protein 8.7 H (6.5-8.0) g/dL Albumin 4.7 (3.5-5.0) g/dL Lipase 60 (8-78) U/L Beta HCG, Quant < 2 mIU/mL Urine Color Yellow Urine Appearance Clear Urine pH 6.0 (5.0-9.0) Ur Specific [place] >= 1.030 H (1.005-1.025) Urine Protein Trace (Neg-Trace) mg/dL Urine Glucose (UA) Negative (Negative) mg/dL Urine Ketones 80 (Negative) mg/dL Urine Blood Negative (Negative) Urine Nitrite Negative (Negative) Ur Leukocyte Esterase Negative (Negative) Urine Opiates Screen Not Detected (Not Detect) Ur Buprenorphine Scrn Not Detected (Not Detect) ng/mL Ur Oxycodone Screen Not Detected (Not Detect) ng/mL Urine Methadone Screen Not Detected (Not Detect) ng/mL Urine Fentanyl Screen POSITIVE H (Not Detect) Ur Barbiturates Screen Not Detected (Not Detect) Ur Phencyclidine Scrn Not Detected (Not Detect) Ur Amphetamines Screen Not Detected (Not Detect) U Benzodiazepines Scrn Not Detected (Not Detect) Urine Cocaine Screen Not Detected (Not Detect) U Marijuana (THC) Screen POSITIVE H (Not Detect) Discharge Plan Discharge Clinical Impression: Nausea & vomiting, Insomnia Patient Disposition: Home, Self-Care Instructions: Acute Nausea and Vomiting (ED), Insomnia (ED) Additional Instructions: Follow up with your primary care provider today as scheduled at 5pm. Return to the emergency department immediately if your symptoms worsen or if you develop any dizziness, shortness of breath, difficulty breathing, chest pain, blurry vision, loss of vision, nausea, vomiting, abdominal pain, fever, chills, back pain, or any other complaints. Prescriptions: New hydroxyzine HCl 50 mg tablet 50 mg PO TID PRN (Reason: nausea and vomiting) Qty: 10 0RF No Action famotidine [Pepcid] 20 mg tablet 20 mg PO DAILY PRN (Reason: abdominal discomfort) Qty: 30 0RF ondansetron 4 mg tablet,disintegrating 4 mg PO Q8H PRN (Reason: nausea and vomiting) Qty: 20 0RF cefuroxime axetil 250 mg tablet 250 mg PO BID 7 Days Qty: 14 0RF ondansetron 4 mg tablet,disintegrating 4 mg PO Q8H 3 Days Qty: 9 0RF acetaminophen [Tylenol Extra Strength] 500 mg tablet 500 mg PO Q6H PRN (Reason: fever or pain) Qty: 14 0RF lidocaine [Lidoderm] 5 % adhesive patch,medicated 1 patch topical DAILY MDD remove after 12 hours PRN (Reason: pain) Qty: 30 0RF Rx Instructions: leave on most painful area for up to 12 hrs naproxen 500 mg tablet 500 mg PO BID PRN (Reason: pain) 10 Days Qty: 20 0RF cyclobenzaprine 5 mg tablet 5 mg PO Q8H PRN (Reason: pain (scale score 7-10)) 5 Days Qty: 14 0RF bacitracin 500 unit/gram ointment 1 appl topical BID Qty: 30 0RF hydroxyzine HCl 50 mg tablet 50 mg PO TID PRN (Reason: nausea and vomiting) Qty: 10 0RF clonidine HCl 0.1 mg tablet 0.1 mg PO TID Qty: 9 0RF ondansetron 4 mg tablet,disintegrating 4 mg PO Q6H PRN (Reason: nausea and vomiting) Qty: 10 0RF levofloxacin 500 mg tablet 500 mg PO DAILY Qty: 10 0RF ondansetron HCl 4 mg tablet 4 mg PO Q6H PRN (Reason: nausea and vomiting) Qty: 14 0RF phenazopyridine 100 mg tablet 100 mg PO TID Qty: 7 0RF ondansetron 4 mg tablet,disintegrating 4 mg PO Q8H PRN (Reason: nausea and vomiting) Qty: 14 0RF cefuroxime axetil 250 mg tablet 250 mg PO BID 6 Days Qty: 12 0RF Stand Alone Forms: Work/School Release Interventions: ED Discharge Assessment Last Done: 01/27/25 10:09 Discharge Date/Time: 01/27/25 10:12 Print Language: Algerian
[2025-01-27 08:06] LABS: Magnesium 2.3 mg/dL (1.6-2.6)
[2025-01-27] MEDS: iohexoL 350 MG/ML 100 ML INFUS..BTL IV (08:30)
[2025-01-27] MEDS: Potassium Chloride ER 20 MEQ TAB.ER.PRT PO (08:36)
[2025-01-27] MEDS: traZODone HCL 25 MG HALFTAB PO (08:36)
--- NOTE | 2025-01-27 09:28 | ECG_ITS ---
Test Reason : NV Blood Pressure : */* mmHG Vent. Rate : 54 BPM Atrial Rate : 54 BPM P-R Int : 136 ms QRS Dur : 78 ms QT Int : 442 ms P-R-T Axes : 23 20 25 degrees QTcB Int : 419 ms Sinus bradycardia with sinus arrhythmia Otherwise normal ECG No previous ECGs available Referred By: Aminata Kim Electronically Signed By: Krishna Prather
[2025-01-27 09:34] VITALS: BP 137/79; PULSE 79; RESP 14; TEMP 36.8; O2SAT 98
--- NOTE | 2025-01-27 09:35 | PC.NURSE ---
Pt resting quietly in room; reports minimal abd pain at this time; no n/v at this time; awaiting dispo
[2025-01-27 10:07] VITALS: BP 107/80; PULSE 107; RESP 16; TEMP 37.2; O2SAT 95
[2025-01-27 10:09] VITALS: BP 107/80; PULSE 107; RESP 16; TEMP 37.2; O2SAT 95
== END 2025-01-27 10:12 | disposition home or self-care (01) ==
PROVIDERS: Physician Assistant Medical; Emergency Provider Emergency Medicine
DX: R11.2 Nausea with vomiting, unspecified (principal); G47.00 Insomnia, unspecified; F12.90 Cannabis use, unspecified, uncomplicated; Z79.899 Other long term (current) drug therapy
CPT/HCPCS: 36415; 74177; 80048; 80076; 80307; 81003; 83690; 83735; 84702; 85025; 93005; 96361; 96374; 99284; 99285; J2405; Q9967

== ENCOUNTER → 2025-01-27 06:49 | Outpatient (BNV) | payer OTHER, SELFPAY | PROVIDERS: Emergency Provider Emergency Medicine; Visit Provider Radiology Diagnostic Radiology | DX: R10.9 Unspecified abdominal pain (principal) | CPT/HCPCS: 74177 ==

== ENCOUNTER → 2025-01-27 09:28 | Outpatient (BNV) | payer OTHER, SELFPAY | PROVIDERS: Emergency Provider Emergency Medicine; Visit Provider Internal Medicine Cardiovascular Disease | DX: I49.9 Cardiac arrhythmia, unspecified (principal); R00.1 Bradycardia, unspecified | CPT/HCPCS: 93010 ==

== ENCOUNTER 2025-05-29 13:54 | Emergency (ER) | payer OTHER, SELFPAY ==
[2025-05-29 13:58] VITALS: BP 128/69; PULSE 76; RESP 16; TEMP 36.2; O2SAT 98; BMI 29.2
--- NOTE | 2025-05-29 13:59 | ED_ITS ---
HPI - Chest Pain General Chief Complaint: Anxiety Stated Complaint: anxiety Time Seen by Provider: 05/29/25 14:53 Source: patient Mode of arrival: ambulatory Limitations: no limitations History of Present Illness ED Provider: Michaela Velazquez NP HPI narrative: Patient is a 25-year-old female who presents emergency department for evaluation she has been experiencing increasing anxiety over the past 2 days she has not had her hydroxyzine to take for the past 2 days. She usually takes it most nights but sometimes in the morning. She was last prescribed this from the emergency department, reports that she contacted her primary care doctor's office and they would not give her a refill until she scheduled an appointment to be seen. She feels that her anxiety will be greatly improved if she had her prescription for hydroxyzine. She admits to marijuana usage otherwise denies recreational drug or alcohol usage. She denies chest pain reports an occasional fluttering in the chest but states this is common when she is experiencing anxiety, she vomited once yesterday reporting that she was very anxious and upset has otherwise been able to eat and drink. She has had a hard time sleeping over the past 2 nights, again she typically takes the hydroxyzine at night as well. Related Data Previous Rx's ?Medication ?Instructions ?Recorded levofloxacin 500 mg tablet 500 mg PO DAILY #10 tabs ondansetron HCl 4 mg tablet 4 mg PO Q6H PRN nausea and 09/08/23 vomiting #14 tabs phenazopyridine 100 mg tablet 100 mg PO TID 6 doses #7 tabs 09/08/23 cefuroxime axetil 250 mg tablet 250 mg PO BID 6 days # 12 tabs 11/08/23 ondansetron 4 mg disintegrating 4 mg PO Q8H PRN nausea and 11/08/23 tablet vomiting #14 tabs famotidine 20 mg tablet (Pepcid) 20 mg PO DAILY PRN ab dominal 11/27/23 discomfort #30 tabs ondansetron 4 mg disintegrating 4 mg PO Q8H PRN nausea and 11/27/23 tablet vomiting #20 tabs cefuroxime axetil 250 mg tablet 250 mg PO BID 7 days # 14 tabs 02/21/24 ondansetron 4 mg disintegrating 4 mg PO Q8H 3 days #9 tabs 03/23/24 tablet acetaminophen 500 mg tablet 500 mg PO Q6H PRN fever or pain 11/24/24 (Tylenol Extra Strength) #14 tabs bacitracin 500 unit/gram topical 1 appl topical BID #3 0 grams 11/24/24 ointment cyclobenzaprine 5 mg tablet 5 mg PO Q8H PRN pain (scal e score 11/24/24 7-10) 5 days #14 tabs lidocaine 5 % topical patch 1 patch topical DAILY PRN pain #30 11/24/24 (Lidoderm) ea naproxen 500 mg tablet 500 mg PO BID PRN pain 10 da ys #20 11/24/24 tabs clonidine HCl 0.1 mg tablet 0.1 mg PO TID #9 tabs 01/01 08/25 hydroxyzine HCl 50 mg tablet 50 mg PO TID PRN nausea a nd 01/19/25 vomiting #10 tabs ondansetron 4 mg disintegrating 4 mg PO Q6H PRN nausea and 01/19/25 tablet vomiting #10 tabs hydroxyzine HCl 50 mg tablet 50 mg PO TID PRN nausea a nd 01/27/25 vomiting #10 tabs hydroxyzine HCl 50 mg tablet 50 mg PO TID PRN anxiety #20 tabs 05/29/25 Allergies Allergy/AdvReac Type Severity Reaction Status Date / Time No Known Allergies (No Known Allergy Verified 05/29/25 14:02 Allergies*) Review of Systems 2 Review of Systems: Yes all other systems are reviewed and are negative [facility] Past Medical History Attestation statement: The following information was validated with the patient. Source: old records reviewed Medical History Acute UTI Social History Social History Unable to assess alcohol history related to: Unknown Alcohol intake: never Smoked in Last 30 Days: No Use of substances other than those prescribed or required for medical reasons: Yes Substance Use Type: Marijuana Advance Directives: No Advance Directives Information Provided: No Do you have a plan to hurt others: No Plan Physical Exam 2 Vital Signs: Vital Signs: Last Vital Signs Temp 97.1 F 05/29/25 13:58 Pulse 76 05/29/25 13:58 Resp 16 05/29/25 13:58 BP 128/69 05/29/25 13:58 Pulse Ox 98 05/29/25 13:58 O2 Del Method Room Air 05/29/25 13:58 BMI result Body Mass Index 29.2 Appearance: Alert.?Oriented to person, place and time. No acute distress.?Normal affect. Eyes: Pupils equal, round and reactive to light.? ENT: Pharynx normal.?? Neck: Normal inspection.? Neck supple.?? CVS: Heart sounds normal. Normal heart rate and rhythm.? Pulses normal.?? Respiratory: No respiratory distress.? Lung sounds clear to auscultation bilaterally?? Abdomen: Soft and non-tender. Normoactive bowel sounds. Skin: Skin warm and dry.? Normal skin color.? ?? Extremities: No lower extremity edema.? No calf ttp? Neuro: Moves all extremities spontaneously. Sensation intact bilaterally. No focal neuro deficits. Ambulates with normal steady gait. Course Course Course Narrative: 05/29/25 1359 YAQUELIN Garcia This is a Rapid Medical Examination (RME) performed by Davide Herrera PA-C in triage. Full HPI, ROS, assessment and treatment plan per primary provider in the Main ED. Hx: 25 yo F hx anxiety here for eval of increased anxiety, my chest doesn't feel right x1 week. ran out of her anxiety meds 2 days ago. has not attempted to call her PCP. states she has been vomiting, unable to eat or sleep in 2 days. Plan: labs, ekg Medical Decision Making Medical Decision Making MDM Narrative: Patient is a 25-year-old female past medical history of anxiety who presents emergency department expressing concern for increasing anxiety of the past 2 days in the setting of not having her hydroxyzine. All of her symptoms experienced the palpitations insomnia her consistent with her anxiety. She does admit to having some stresses but denies any SI/HI. Unfortunately, since she has not had a recent follow-up with your primary care provider they would not prescribe her the hydroxyzine. Her physical examination is benign. Advised vital signs are stable. She had palpitations, no overt chest pain, she does not have risk factors for ACS. Perc negative not consistent with pulmonary embolism. Has a benign abdominal exam she is tolerating oral intake, I suspect that the single episode of emesis was secondary to anxiety as well. At this time feel that she is stable for discharge home Differential Diagnosis Differential Diagnoses: The differential diagnosis associated with the presentation includes (See narrative above) Admission/Observation Consideration of admission/observation: Escalation of care including admission/observation considered Lab Data MDM Lab Attestation statement: I reviewed the patient's lab results. Serum labs obtained prior to my assumption of care revealing CBC without leukocytosis anemia or thrombocytopenia. No electrolyte derangement. No SCAR. Unremarkable LFTs. High sensitive troponin below detectable limits. 05/29/25 14:17 05/29/25 14:17 Labs: Lab Results 05/29/25 Range/Units 14:17 WBC 9.7 (4.8-10.8) X10*3/uL RBC 5.15 (4.20-5.50) X10*6/uL Hgb 15.0 (12.0-16.0) g/dl Hct 43.1 (37.0-47.0) % MCV 83.7 (80.0-98.0) fL MCH 29.1 (27.0-33.0) pg MCHC 34.8 (31.0-35.0) g/dl RDW 12.5 (11.0-16.0) % Plt Count 333 D (160-400) X10*3/uL MPV 9.2 L (9.4-12.3) fL Immature Gran % (Auto) 0.2 (0.0-0.4) % Neut % (Auto) 82.3 H (45-73) % Lymph % (Auto) 14.1 L (20-40) % Gall[place] % (Auto) 2.7 (2-11) % Eos % (Auto) 0.3 (0-4) % Baso % (Auto) 0.4 (0-2) % Lymph # (Auto) 1.4 (1.2-4.9) X10*3/uL [place] # (Auto) 0.3 (0.1-1.2) X10*3/uL Eos # (Auto) 0.0 (0.0-0.4) X10*3/uL Baso # (Auto) 0.0 (0.0-0.2) X10*3/uL Abs Immat Gran (auto) 0.02 (0.00-0.03) X10*3/uL Absolute Neuts (auto) 8.0 (2.0-8.3) x10*3/uL Absolute Nucleated RBC 0.000 (0.0-0.012) X10*3/uL Nucleated RBC % (auto) 0.0 (0.0-0.2) /100WBC Sodium 140 (135-145) mmol/L Potassium 4.0 D (3.3-5.1) mmol/L Chloride 106 (96-108) mmol/L Carbon Dioxide 24 (22-29) mmol/L Anion Gap 14 (12-20) BUN 12 (9-16) mg/dL Creatinine 0.64 (0.5-1.4) mg/dL Estim Creat Clear Calc 142.5 Estimated GFR > 60 Random Glucose 109 (60-115) mg/dL Calcium 9.5 (8.4-10.2) mg/dL Magnesium 1.9 (1.6-2.6) mg/dL Total Bilirubin 0.5 (0.0-1.0) mg/dL AST 16 (5-31) U/L ALT 12 (0-31) U/L Alkaline Phosphatase 73 (39-117) U/L Troponin I High Sens < 2.7 (<3.5-17.0) ng/L Total Protein 7.6 (6.5-8.0) g/dL Albumin 4.7 (3.5-5.0) g/dL Lipase 13 (8-78) U/L Independent Interpretation I performed an independent interpretation of an: EKG (Normal sinus rhythm with ventricular rate of 61, normal MERARI, QTC 422, no ST-elevation) External Record Review External record reviewed: Outpatient record Prescription Management I considered prescription management with: Other (See narrative above) Discharge Plan Discharge Clinical Impression: Anxiety Patient Disposition: Home, Self-Care Instructions: Anxiety (ED) Prescriptions: New hydroxyzine HCl 50 mg tablet 50 mg PO TID PRN (Reason: anxiety) Qty: 20 0RF No Action famotidine [Pepcid] 20 mg tablet 20 mg PO DAILY PRN (Reason: abdominal discomfort) Qty: 30 0RF ondansetron 4 mg tablet,disintegrating 4 mg PO Q8H PRN (Reason: nausea and vomiting) Qty: 20 0RF cefuroxime axetil 250 mg tablet 250 mg PO BID 7 Days Qty: 14 0RF ondansetron 4 mg tablet,disintegrating 4 mg PO Q8H 3 Days Qty: 9 0RF acetaminophen [Tylenol Extra Strength] 500 mg tablet 500 mg PO Q6H PRN (Reason: fever or pain) Qty: 14 0RF lidocaine [Lidoderm] 5 % adhesive patch,medicated 1 patch topical DAILY MDD remove after 12 hours PRN (Reason: pain) Qty: 30 0RF Rx Instructions: leave on most painful area for up to 12 hrs naproxen 500 mg tablet 500 mg PO BID PRN (Reason: pain) 10 Days Qty: 20 0RF cyclobenzaprine 5 mg tablet 5 mg PO Q8H PRN (Reason: pain (scale score 7-10)) 5 Days Qty: 14 0RF bacitracin 500 unit/gram ointment 1 appl topical BID Qty: 30 0RF hydroxyzine HCl 50 mg tablet 50 mg PO TID PRN (Reason: nausea and vomiting) Qty: 10 0RF clonidine HCl 0.1 mg tablet 0.1 mg PO TID Qty: 9 0RF ondansetron 4 mg tablet,disintegrating 4 mg PO Q6H PRN (Reason: nausea and vomiting) Qty: 10 0RF hydroxyzine HCl 50 mg tablet 50 mg PO TID PRN (Reason: nausea and vomiting) Qty: 10 0RF levofloxacin 500 mg tablet 500 mg PO DAILY Qty: 10 0RF ondansetron HCl 4 mg tablet 4 mg PO Q6H PRN (Reason: nausea and vomiting) Qty: 14 0RF phenazopyridine 100 mg tablet 100 mg PO TID Qty: 7 0RF ondansetron 4 mg tablet,disintegrating 4 mg PO Q8H PRN (Reason: nausea and vomiting) Qty: 14 0RF cefuroxime axetil 250 mg tablet 250 mg PO BID 6 Days Qty: 12 0RF Referrals: Physician,Unknown J [Primary Care Provider, Medical] Print Language: Polish
--- NOTE | 2025-05-29 14:01 | ECG_ITS ---
Test Reason : anxiety Blood Pressure : */* mmHG Vent. Rate : 61 BPM Atrial Rate : 61 BPM P-R Int : 126 ms QRS Dur : 78 ms QT Int : 420 ms P-R-T Axes : 33 27 11 degrees QTcB Int : 422 ms Normal sinus rhythm with sinus arrhythmia Normal ECG When compared with ECG of 27-Jan-2025 09:33, No significant change was found Referred By: Lety Herrera Electronically Signed By: JACE BARON MD
[2025-05-29 14:22] LABS: MANUAL DIFF FLAG NO
[2025-05-29 14:23] LABS: Basophils Percent Auto 0.4 % (0-2); Eosinophils Percent Auto 0.3 % (0-4); Hematocrit 43.1 % (37.0-47.0); Imm Gran Abs Auto 0.02 X10*3/uL (0.00-0.03); Imm Gran Pct Auto 0.2 % (0.0-0.4); Lymphocytes Absolute Auto 1.4 X10*3/uL (1.2-4.9); Lymphocytes Percent Auto 14.1 % (20-40); Mean Corpuscular HGB Conc 34.8 g/dl (31.0-35.0); Mean Corpuscular Hemoglobin 29.1 pg (27.0-33.0); Mean Corpuscular Volume 83.7 fL (80.0-98.0); Mean Platelet Volume 9.2 fL (9.4-12.3); Monocytes Absolute Auto 0.3 X10*3/uL (0.1-1.2); Monocytes Percent Auto 2.7 % (2-11); Neutrophils Percent Auto 82.3 % (45-73); Platelet Count 333 X10*3/uL (160-400); Red Blood Count 5.15 X10*6/uL (4.20-5.50); Red Cell Distribution Width 12.5 % (11.0-16.0); White Blood Count 9.7 X10*3/uL (4.8-10.8)
[2025-05-29 14:38] LABS: Alanine Aminotransferase 12 U/L (0-31); Albumin Level 4.7 g/dL (3.5-5.0); Alkaline Phosphatase 73 U/L (39-117); Anion Gap 14 (12-20); Aspartate Amino Transferase 16 U/L (5-31); Bilirubin Total 0.5 mg/dL (0.0-1.0); Blood Urea Nitrogen 12 mg/dL (9-16); Calcium 9.5 mg/dL (8.4-10.2); Carbon Dioxide 24 mmol/L (22-29); Chloride 106 mmol/L (96-108); Creatinine Clr Calc Pharmacy 142.5; Estimated Glomerular Filt Rate > 60; Glucose Random 109 mg/dL (60-115); Lipase 13 U/L (8-78); Magnesium 1.9 mg/dL (1.6-2.6); Sodium 140 mmol/L (135-145); Total Protein 7.6 g/dL (6.5-8.0)
[2025-05-29 14:46] LABS: Troponin-I High Sensitivity < 2.7 ng/L (<3.5-17.0)
[2025-05-29 16:00] VITALS: BP 128/69; PULSE 76; RESP 16; TEMP 36.2; O2SAT 98
== END 2025-05-29 16:00 | disposition home or self-care (01) ==
PROVIDERS: Physician Assistant Medical; Emergency Provider Emergency Medicine
DX: R07.89 Other chest pain (principal); F41.9 Anxiety disorder, unspecified; I49.8 Other specified cardiac arrhythmias; Z79.899 Other long term (current) drug therapy
CPT/HCPCS: 36415; 80053; 83690; 83735; 84484; 85025; 93005; 99283; 99284

== ENCOUNTER → 2025-05-29 14:01 | Outpatient (BNV) | payer OTHER, SELFPAY | PROVIDERS: Emergency Provider Emergency Medicine; Visit Provider Internal Medicine Cardiovascular Disease | DX: F41.9 Anxiety disorder, unspecified (principal) | CPT/HCPCS: 93010 ==